=== PATIENT | female | born 1980 | race Caucasian/White ===

== ENCOUNTER 2022-06-12 16:14 | Inpatient (IN) ==
--- NOTE | 2022-06-12 16:57 | XRay Report ---
SINGLE VIEW CHEST CLINICAL HISTORY: Cough and dyspnea. Covid FINDINGS: An AP, portable, upright chest radiograph is compared to study dated 06/07/2022. The cardiom ediastinal silhouette is unremarkable. There is a small right pleural effusion with right basilar con solidation. This is new from 06/07/2022. The left lung appears clear. No pneumothorax is seen. The bon y thorax is grossly intact. IMPRESSION: Small right pleural effusion with right basilar consolidation. This is new from previous. ACT 112: Negative or not required by law. Electronically signed by: Hunter Dc M.D. 06/12/2022 4:55 PM
[2022-06-12] MEDS ORDERED: SODIUM CHLORIDE 0.9% 1000ML 500 ML IV ONE (17:35)
[2022-06-12 17:42] LABS: INR 1.3 (0.9-1.1); Partial Thromboplastin Ratio 1.1; Partial Thromboplastin Time 30.8 Seconds (21.0-31.0); Prothrombin Time 13.3 Seconds (9.0-12.0)
--- NOTE | 2022-06-12 17:42 | Emergency Department Note ---
Impression & Plan Pneumonia, Thrombocytopenia, Acute GI bleeding, Anemia ED Provider Note NAME: RODDY CALL AGE: 42 SEX: F : 1980 ARRIVES VIA: Walk-In INFORMANT: Patient, ED PROVIDER(S): Mikey Mathew DO CHIEF COMPLAINT: Difficulty breathing HPI: Patient is a 42-year-old female who presented to the emergency department for an evaluation of difficulty breathing and cough. The patient was recently discharged from [facility]. She has a history of liver transplant 40 years ago. She has been also in rejection. She was noted to have very high liver function studies and a positive COVID when she was in our facility last week. She was transferred from our facility to [facility]. She states that she was discharged only recently. Her sister presented with her and does give a good portion of the history. She denies having any lower extremity swelling but she is noticed pain and ecchymosis over parts of her body with only minimal trauma. She was supposed to have repeat laboratory studies done today and her doctor noted that her creatinine and BUN were elevated so she was sent to the emergency department for further evaluation. The patient denies having any abdominal pain. She denies having any black or bloody bowels. ROS: See above HPI for pertinent positives & negatives. A total of 10 systems reviewed and were otherwise negative. PAST MEDICAL HISTORY: See Below PAST SURGICAL HISTORY: See Below FAMILY HISTORY: See Below SOCIAL HISTORY: See Below HOME MEDICATIONS: See Below ALLERGIES: See Below VITALS: See Below PHYSICAL EXAMINATION: GENERAL: The patient is awake and alert. She is somewhat anxious appearing. EYES: The conjunctivae are clear. The pupils are round and reactive. EARS, NOSE, MOUTH AND THROAT: The nose is without any evidence of any deformity. NECK: The neck is nontender and supple. Diminished breath sounds are noted at the right base. There is no significant wheezing. There was coughing with deep inspiration but there is no significant conversational dyspnea. CARDIOVASCULAR: Regular rate and rhythm noted there no murmurs rubs or gallops normal S1 normal S2. GASTROINTESTINAL: The abdomen is soft. Abdomen is nontender. Stool exam revealed light brown stool which was heme positive. MUSCULOSKELETAL/EXTREMITIES: There is no evidence of gross deformity full range of motion is noted in the hips and shoulders. SKIN: There is no significant pedal edema. Ecchymosis was noted over the extremities. NEUROLOGIC: Patient is awake alert and oriented x3. MEDICAL DECISION MAKING: The patient is a 42-year-old female who presented to the emergency department for an evaluation of cough. The patient's had ongoing cough for at least last 24 hours. She was sent for outpatient lab studies by her primary care physician. She was found to have anemia. She was also sent in because she has an elevated BUN and creatinine ratio and there was concern that she may have a GI bleed given the patient's history of liver issues and her history of esophageal varices. I discussed the patient's laboratory and radiographic studies with her. She was started on IV antibiotic in the emergency department. She does have significant past medical history and if this is a pulmonary infection I do feel she could have the possibility of a prolonged course and may require further inpatient management or work-up. For this reason I discussed her case with the on-call [facility]. They have agreed to evaluate the patient in the emergency department for further management and disposition. The patient was found to have an improvement of her previously noted transaminitis. Her hemoglobin is stable compared to her blood draw earlier today but it is lower than her last hemoglobin that is in our system. Her rectal exam did reveal heme positive stool but it was light brown and did not appear to be consistent with acute blood or melena. Triage Nursing notes reviewed. Prior medical records reviewed Vital Signs: reviewed and remarkable for no significant abnormalities Differential diagnosis: Reactive airway disease, pneumonia, pneumothorax, COPD, CHF, infections, cardiac ischemia, pulmonary embolism, musculoskeletal, gastrointestinal, as well as other pathologies. ER treatment provided: See below Diagnostics interpreted by me: ECG: EKG was obtained in the emergency department. My interpretation is normal sinus rhythm at 84 bpm. There is no ectopy. There is no acute ST segment abnormalities noted. This was compared to a tracing from December 08, 2021. No changes were noted. Cardiac Monitoring: An order was placed for continuous cardiac monitoring. The monitor shows a rate of 84 bpm with sinus rhythm. Laboratory studies: As stated above and show below. Imaging studies: See below Consultation(s): I discussed this case with Dr. Ramirez who is on-call for the [facility] group. 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"-F/U [facility]-per pre-op letter "cirrhosis with portal hypertension that is likely a result of chronic rejection versus antibody-mediated rejection" Ovarian cyst Portal hypertension Splenomegaly Thrombocythemia Surgical History H/O liver transplant Age 7.5 months, hepatitis H/O myringotomy History of anesthesia reaction has woken up in the middle of anesthesia during wisdom teeth extraction in dentist office History of esophagogastroduodenoscopy (EGD) History of liver biopsy S/P tonsillectomy and adenoidectomy [place] teeth removed Family History Grandmother Ovarian cancer Myocardial infarction Aunt Ovarian cancer Grandfather Lung cancer Father Stroke Hypertension Mother Hypertension Denies family history of Rheumatoid arthritis Prostate cancer Diabetes Osteoporosis Alzheimer disease Crohn's disease Breast cancer Colorectal cancer Asthma Social History Smoking Status: Never smoker Second Hand Exposure: No; Hx Alcohol Use: No Hx Substance Use: No Preferred Language: Chinese Communication Ability: Effective Visual Impairment: No Limitations Hearing Ability: Normal Special Tax Auditor Required: No Beliefs That Will Affect Care: None marital status: Single Current Living Situation: Family Current Living Situation Comment: LIVES WITH SISTER [place] current occupational status: employed current occupation: WORKS [employer] Feels Safe at Home: Yes Childhood Exposure to Second-Hand Smoke: Yes caffeine: No Dental Care, Regularly: Yes Physical Activity Frequency: Does not Exercise Seatbelt Use: never Sunscreen Use: No Assistive Devices: None Allergies Allergies Allergy/AdvReac Type Severity Reaction Status Date / Time dextromethorphan AdvReac Dizziness Verified 01/31/22 10:36 [From Mucinex Cough] guaifenesin AdvReac Dizziness Verified 01/31/22 10:36 [From Mucinex Cough] sumatriptan [From Imitrex] AdvReac Dizziness Unverified 06/12/22 23:37 & Lethargy Home Meds Home Medications Medication Instructions Recorded Confirmed ondansetron HCl 4 mg tablet 4 mg PO Q8H PRN Nausea And Vomiting 12/18/19 06/07/22 prednisone 10 mg tablet 10 mg PO HS 01/20/21 06/07/22 carvedilol 6.25 mg tablet 6.25 mg PO BID 12/01/21 06/07/22 diclofenac sodium 1 % topical gel 2 g topical Q4H PRN Pain 12/01/21 06/07/22 metoclopramide HCl 5 mg tablet 5 mg PO BID 12/01/21 06/07/22 tacrolimus 1 mg PO Q12 06/07/22 06/07/22 Results & Data (ED) Vital Signs Vital Signs - 24 hr 06/12/22 16:16 06/12/22 18:00 06/12/22 20:00 Temperature 36.8 C Temperature Source Temporal Artery Scan Pulse Rate 93 H Pulse Rate [Right Finger] 86 85 Pulse Rhythm [Right Finger] Regular Regular Pulse Strength [Right Finger] Normal Normal Respiratory Rate 18 18 18 Respiratory Effort / Characteristics Non-Labored Non-Labored Respiratory Depth Normal Normal Respiratory Pattern Regular Regular Blood Pressure 123/85 Blood Pressure [Left Arm] 115/78 115/78 Blood Pressure Mean 97 Blood Pressure Mean [Left Arm] 90 90 Blood Pressure Position [Left Arm] Lying Pulse Oximetry 98 97 97 Oxygen Delivery Method Room Air Room Air Room Air Sepsis Recent Fever Within 48 Hours No Sepsis New/Unexplained Change in Mental Status No Sepsis Action Taken by Nursing No Action Required 06/12/22 22:00 Temperature Temperature Source Pulse Rate Pulse Rate [Right Finger] 84 Pulse Rhythm [Right Finger] Regular Pulse Strength [Right Finger] Normal Respiratory Rate 18 Respiratory Effort / Characteristics Non-Labored Respiratory Depth Normal Respiratory Pattern Regular Blood Pressure Blood Pressure [Left Arm] 120/76 Blood Pressure Mean Blood Pressure Mean [Left Arm] 90 Blood Pressure Position [Left Arm] Lying Pulse Oximetry 98 Oxygen Delivery Method Room Air Sepsis Recent Fever Within 48 Hours Sepsis New/Unexplained Change in Mental Status Sepsis Action Taken by Senior Living Medications Current Medication List: was personally reviewed by me Laboratory Data Attestation: I reviewed the patient's lab results. Result diagrams: 06/12/22 17:17 06/12/22 17:17 Lab Results 06/12/22 06/12/22 06/12/22 Range/Units 17:17 17:17 17:18 WBC 3.15 L (4.8-10.8) K/ul RBC 3.18 L (3.93-5.22) M/uL Hgb 8.2 L (12.0-16.0) g/dl Hct 26.5 L (34.1-44.9) % MCV 83.3 (80.0-100.0) fL MCH 25.8 (25.0-34.0) pg MCHC 30.9 L (32.0-36.0) g/dL RDW Std Deviation 50.6 H (36.4-46.3) fL RDW Coeff of Tabatha 16.9 H (11.5-14.5) % Plt Count 54 L (130-400) K/uL Immature Gran % (Auto) 1.0 % Neut % (Auto) 62.2 % Lymph % (Auto) 15.9 % [place] % (Auto) 18.1 % Eos % (Auto) 2.5 % Baso % (Auto) 0.3 % Neut # (Auto) 1.96 (1.4-6.5) K/uL Lymph # (Auto) 0.50 L (1.2-3.4) K/uL [place] # (Auto) 0.57 (0.24-0.82) K/uL Eos # (Auto) 0.08 (0-0.50) K/uL Baso # (Auto) 0.01 (0-0.2) K/uL Immature Gran # (Auto) 0.03 H (0.00-0.02) K/uL Platelet Estimate Decreased L (Normal) Ovalocytes 1+ ESR (0-20) mm/hr PT 13.3 H (9.0-12.0) Seconds INR 1.3 H (0.9-1.1) APTT 30.8 (21.0-31.0) Seconds PTT Ratio 1.1 Sodium 138 (136-145) mmol/L Potassium 3.8 (3.5-5.1) mmol/L Chloride 108 H (98-107) mmol/L Carbon Dioxide 24 (21-32) mmol/L Anion Gap 6 (3-11) BUN 20 (6-23) mg/dl Creatinine 0.61 (0.6-1.2) mg/dl Est Cr Clr Drug Dosing 113.6 ml/min Est GFR ( Amer) 130.5 ml/min Est GFR (Non-Af Amer) 112.6 ml/min BUN/Creatinine Ratio 32.8 H (10-20) Glucose 109 H (70-99(Fasting)) mg/dl Lactate (0.4-2.0) mmol/L Calcium 8.6 (8.5-10.1) mg/dl Total Bilirubin 1.7 H (0.2-1.0) mg/dl AST 80 H (13-39) U/L ALT 62 H (7-52) U/L Alkaline Phosphatase 209 H (34-104) U/L C-Reactive Protein (0-0.5) mg/dl Total Protein 7.2 (6.0-8.3) gm/dl Albumin 3.9 (3.4-5.0) gm/dl Globulin 3.3 (2.5-4.0) gm/dl Albumin/Globulin Ratio 1.2 (0.9-2) Procalcitonin (0-0.5) ng/ml Urine Color Urine Appearance (Clear) Urine pH (4.5-7.5) Ur Specific [place] (1.000-1.030) Urine Protein (Negative) Urine Glucose (UA) (Negative) Urine Ketones (Negative) Urine Blood (Negative) Urine Nitrite (Negative) Urine Bilirubin (Negative) Urine Urobilinogen (Negative) Ur Leukocyte Esterase (Negative) Urine WBC (Auto) (0-5) /hpf Urine RBC (Auto) (0-4) /hpf U Hyaline Cast (Auto) (0-5) /lpf U Epithel Cells (Auto) (0-5) /lpf Urine Bacteria (Auto) (Negative) Urine Yeast 06/12/22 06/12/22 06/12/22 Range/Units 17:19 18:19 18:19 WBC (4.8-10.8) K/ul RBC (3.93-5.22) M/uL Hgb (12.0-16.0) g/dl Hct (34.1-44.9) % MCV (80.0-100.0) fL MCH (25.0-34.0) pg MCHC (32.0-36.0) g/dL RDW Std Deviation (36.4-46.3) fL RDW Coeff of Tabatha (11.5-14.5) % Plt Count (130-400) K/uL Immature Gran % (Auto) % Neut % (Auto) % Lymph % (Auto) % [place] % (Auto) % Eos % (Auto) % Baso % (Auto) % Neut # (Auto) (1.4-6.5) K/uL Lymph # (Auto) (1.2-3.4) K/uL [place] # (Auto) (0.24-0.82) K/uL Eos # (Auto) (0-0.50) K/uL Baso # (Auto) (0-0.2) K/uL Immature Gran # (Auto) (0.00-0.02) K/uL Platelet Estimate (Normal) Ovalocytes ESR 3 (0-20) mm/hr PT (9.0-12.0) Seconds INR (0.9-1.1) APTT (21.0-31.0) Seconds PTT Ratio Sodium (136-145) mmol/L Potassium (3.5-5.1) mmol/L Chloride (98-107) mmol/L Carbon Dioxide (21-32) mmol/L Anion Gap (3-11) BUN (6-23) mg/dl Creatinine (0.6-1.2) mg/dl Est Cr Clr Drug Dosing ml/min Est GFR ( Amer) ml/min Est GFR (Non-Af Amer) ml/min BUN/Creatinine Ratio (10-20) Glucose (70-99(Fasting)) mg/dl Lactate 1.0 (0.4-2.0) mmol/L Calcium (8.5-10.1) mg/dl Total Bilirubin (0.2-1.0) mg/dl AST (13-39) U/L ALT (7-52) U/L Alkaline Phosphatase (34-104) U/L C-Reactive Protein (0-0.5) mg/dl Total Protein (6.0-8.3) gm/dl Albumin (3.4-5.0) gm/dl Globulin (2.5-4.0) gm/dl Albumin/Globulin Ratio (0.9-2) Procalcitonin 0.16 (0-0.5) ng/ml Urine Color Urine Appearance (Clear) Urine pH (4.5-7.5) Ur Specific [place] (1.000-1.030) Urine Protein (Negative) Urine Glucose (UA) (Negative) Urine Ketones (Negative) Urine Blood (Negative) Urine Nitrite (Negative) Urine Bilirubin (Negative) Urine Urobilinogen (Negative) Ur Leukocyte Esterase (Negative) Urine WBC (Auto) (0-5) /hpf Urine RBC (Auto) (0-4) /hpf U Hyaline Cast (Auto) (0-5) /lpf U Epithel Cells (Auto) (0-5) /lpf Urine Bacteria (Auto) (Negative) Urine Yeast 06/12/22 06/12/22 Range/Units 18:19 Unknown WBC (4.8-10.8) K/ul RBC (3.93-5.22) M/uL Hgb (12.0-16.0) g/dl Hct (34.1-44.9) % MCV (80.0-100.0) fL MCH (25.0-34.0) pg MCHC (32.0-36.0) g/dL RDW Std Deviation (36.4-46.3) fL RDW Coeff of Tabatha (11.5-14.5) % Plt Count (130-400) K/uL Immature Gran % (Auto) % Neut % (Auto) % Lymph % (Auto) % [place] % (Auto) % Eos % (Auto) % Baso % (Auto) % Neut # (Auto) (1.4-6.5) K/uL Lymph # (Auto) (1.2-3.4) K/uL [place] # (Auto) (0.24-0.82) K/uL Eos # (Auto) (0-0.50) K/uL Baso # (Auto) (0-0.2) K/uL Immature Gran # (Auto) (0.00-0.02) K/uL Platelet Estimate (Normal) Ovalocytes ESR (0-20) mm/hr PT (9.0-12.0) Seconds INR (0.9-1.1) APTT (21.0-31.0) Seconds PTT Ratio Sodium (136-145) mmol/L Potassium (3.5-5.1) mmol/L Chloride (98-107) mmol/L Carbon Dioxide (21-32) mmol/L Anion Gap (3-11) BUN (6-23) mg/dl Creatinine (0.6-1.2) mg/dl Est Cr Clr Drug Dosing ml/min Est GFR ( Amer) ml/min Est GFR (Non-Af Amer) ml/min BUN/Creatinine Ratio (10-20) Glucose (70-99(Fasting)) mg/dl Lactate (0.4-2.0) mmol/L Calcium (8.5-10.1) mg/dl Total Bilirubin (0.2-1.0) mg/dl AST (13-39) U/L ALT (7-52) U/L Alkaline Phosphatase (34-104) U/L C-Reactive Protein 0.57 H (0-0.5) mg/dl Total Protein (6.0-8.3) gm/dl Albumin (3.4-5.0) gm/dl Globulin (2.5-4.0) gm/dl Albumin/Globulin Ratio (0.9-2) Procalcitonin (0-0.5) ng/ml Urine Color Dark Yellow Urine Appearance Clear (Clear) Urine pH 5.5 (4.5-7.5) Ur Specific [place] 1.027 (1.000-1.030) Urine Protein 1+ H (Negative) Urine Glucose (UA) Negative (Negative) Urine Ketones Trace H (Negative) Urine Blood 3+ H (Negative) Urine Nitrite Positive A (Negative) Urine Bilirubin 1+ H (Negative) Urine Urobilinogen Positive H (Negative) Ur Leukocyte Esterase Trace H (Negative) Urine WBC (Auto) 1-5 (0-5) /hpf Urine RBC (Auto) 0-4 (0-4) /hpf U Hyaline Cast (Auto) 5-10 H (0-5) /lpf U Epithel Cells (Auto) >30 H (0-5) /lpf Urine Bacteria (Auto) Negative (Negative) Urine Yeast Not Reportable Administered Medications Discontinued Medications Sodium Chloride (Nss 1000ml) 500 mls @ 999 mls/hr IV .Q31M ONE Stop: 06/12/22 18:05 Last Infusion: 06/12/22 20:31 Dose: 0 mls/hr Documented By: Admin: 06/12/22 19:55 Dose: 999 mls/hr Documented By: REJI Ceftriaxone Sodium (Rocephin) 2,000 mg in 70 mls @ 140 mls/hr IV NOW STA Stop: 06/12/22 19:32 Last Infusion: 06/12/22 20:31 Dose: 0 mls/hr Documented By: Admin: 06/12/22 19:55 Dose: 140 mls/hr Documented By: AP Imaging Data Radiologist's Impression: Chest X-Ray 06/12/22 16:25 SINGLE VIEW CHEST CLINICAL HISTORY: Cough and dyspnea. Covid FINDINGS: An AP, portable, upright chest radiograph is compared to study dated 06/07/2022. The cardiomediastinal silhouette is unremarkable. There is a small right pleural effusion with right basilar consolidation. This is new from 06/07/2022. The left lung appears clear. No pneumothorax is seen. The bony thorax is grossly intact. IMPRESSION: Small right pleural effusion with right basilar consolidation. This is new from previous. ACT 112: Negative or not required by law. Electronically signed by: Hunter Dc M.D. 06/12/2022 4:55 PM Discharge Plan Visit Data Chief Complaint: Flu Like Symptoms Stated Complaint: + COVID TEST ED Provider: Mikey Mathew Discharge Problem: Pneumonia, Thrombocytopenia, Acute GI bleeding, Anemia Patient Disposition: Being Evaluated by Hospitalist Forms Stand Alone Forms: My [facility] Prescriptions Prescriptions: No Action ondansetron HCl 4 mg tablet 4 mg PO Q8H PRN (Reason: Nausea And Vomiting) prednisone 10 mg tablet 10 mg PO HS tacrolimus 1 mg PO Q12 Rx Instructions: liquid pt states she cannot do pills carvedilol 6.25 mg Tablet 6.25 mg PO BID metoclopramide HCl 5 mg Tablet 5 mg PO BID diclofenac sodium [Voltaren] 1 % Gel 2 g TOPICAL Q4H PRN (Reason: Pain) Referrals Referrals: Donny Mazariegos MD [Primary Care Provider] -
[2022-06-12 17:49] LABS: Albumin Globulin Ratio 1.2 (0.9-2); Albumin Level 3.9 gm/dl (3.4-5.0); BUN Creatinine Ratio 32.8 (10-20); Bilirubin,Total 1.7 mg/dl (0.2-1.0); Calcium 8.6 mg/dl (8.5-10.1); Creatinine Clr Calc Pharmacy 113.6 ml/min; Est GFR (African American) 130.5 ml/min; Est GFR (Non-African American) 112.6 ml/min; Globulin 3.3 gm/dl (2.5-4.0); Potassium 3.8 mmol/L (3.5-5.1); Total Protein 7.2 gm/dl (6.0-8.3)
[2022-06-12 17:56] LABS: Basophils # (auto) 0.01 K/uL (0-0.2); Basophils % (auto) 0.3 %; Eosinophils # (auto) 0.08 K/uL (0-0.50); Eosinophils % (auto) 2.5 %; Hematocrit (blood only) 26.5 % (34.1-44.9); Hemoglobin 8.2 g/dl (12.0-16.0); Immature Granulocytes # (auto) 0.03 K/uL (0.00-0.02); Lymphocytes % (auto) 15.9 %; Mean Corpuscular Hemoglobin 25.8 pg (25.0-34.0); Mean Corpuscular Hgb Conc 30.9 g/dL (32.0-36.0); Mean Corpuscular Volume 83.3 fL (80.0-100.0); Monocytes # (auto) 0.57 K/uL (0.24-0.82); Monocytes % (auto) 18.1 %; Neutrophils # (auto) 1.96 K/uL (1.4-6.5); Neutrophils % (auto) 62.2 %; Ovalocytes 1+; Platelet Count 54 K/uL (130-400); Platelet Estimate Decreased (Normal); RDW Coefficient of Variation 16.9 % (11.5-14.5); RDW Standard Deviation 50.6 fL (36.4-46.3); Red Blood Count 3.18 M/uL (3.93-5.22); White Blood Count 3.15 K/ul (4.8-10.8)
[2022-06-12] MEDS ORDERED: cefTRIAXone SODIUM 2,000 MG/70 ML BAG IV STA (19:03)
[2022-06-12 19:49] LABS: Appearance Urine Clear (Clear); Bacteria Urine Automated Negative (Negative); Blood Urine 3+ (Negative); Color Urine Dark Yellow; Epithelial Cell Urine Auto >30 /lpf (0-5); Glucose Urine UA Negative (Negative); Ketones Urine Trace (Negative); Leukocyte Esterase Urine Trace (Negative); Nitrite Urine Positive (Negative); Protein Urine 1+ (Negative); RBC Urine Automated 0-4 /hpf (0-4); Specific Gravity Urine 1.027 (1.000-1.030); Urobilinogen Urine Positive (Negative); pH Urine 5.5 (4.5-7.5)
[2022-06-12 19:50] LABS: Bilirubin Urine 1+ (Negative)
--- NOTE | 2022-06-12 23:13 | History & Physical Report ---
Date of Service June 12, 2022 Assessment & Plan (1) Upper GI bleed: Plan: Progressive epigastric burning pain x1 day, h/o grade III esophageal varices and cirrhosis, and with severe thrombocytopenia (see below). No N/V/hematemesis/melena/hematochezia but heme occult positive stool in ED. - no hypotension/tachycardia or cailin bloody/melanotic stools in ED. - start Protonix bolus + gtt - received CTX in ED - continue with Cefepime as stated below - hold on Octreotide for now as no overt signs of active bleeding and patient is hemodynamically stable - IVFs as stated below - consulted GI - appreciate recs - check H/H now and check CBC in AM - hemoccult all stools - transfuse for Hgb <7 (2) Pneumonia: Plan: H/o COVID-19 positive on 06/07, with worsening cough and SOB over last day. CXR with small right pleural effusion with right basilar consolidation. Lactate/procalcitonin WNL, CRP 0.57, ESR WNL. Not septic. However patient is chronically immunosuppressed, leukopenic, and recently admitted at [facility] - high risk for resistant PNA. - ordered MRSA nares - pending - ordered CT chest for further evaluation - pending - s/p Ceftriaxone 2g IV in ED - continue with Vancomycin/Cefepime/Azithromycin - follow blood cx and adjust abx accordingly - s/p NSS 500cc bolus - continue with Normosol-R @100cc/hr (full maintenance) - IS Q1H while awake - trend CBC in AM (3) UTI (urinary tract infection): Plan: UA with 3+ blood/positive nitrite/trace LE but with >30 epithelial cells, and no urinary symptoms. - Cefepime will cover for this - follow urine cx and adjust abx accordingly (4) Thrombocytopenia: Plan: Plts 54 here, and PT/INR 13.3/1.3, all of which are improved from [facility] hospitalization. Patient has developed a sparse generalized petechial rash which is likely due to chronic thrombocytopenia. No signs of hemodynamic instability/DIC. - trend CBC and PT/INR in AM - trend clinically for changes in rash (5) Anemia: Plan: Hgb 8.1 --> 8.2 here, up from 7.9 at [facility]. However with heme occult positive stool and epigastric pain. - repeat H/H now and trend CBC in AM - transfuse for Hgb <7 as stated above (6) Transaminitis: Plan: AST 80/ALT 62/ALP 209, all significantly improved from [facility]. Transplant rejection process seems to be improving with increased Prednisone dosing. - continue Prednisone 40mg daily x5 more days (total of 10 days), then back down to chronic 10mg daily dose - recs per [facility] Hepatology - continue Tacrolimus, per [facility] Hepatology - tacrolimus level pending - trend LFTs daily (7) Hyperbilirubinemia: Plan: TBili 1.7, slightly increased from [facility] hospitalization. - trend daily (8) Leukopenia: Plan: WBC 3.15, stable from hospitalization at [facility]. Due to chronic immunosuppressive regimen. - trend daily (9) COVID-19: Plan: Diagnosed on 06/07 with positive test here, symptoms since 06/06 - again positive today. Patient has a cough that is most likely due to superimposed pneumonia, as stated above. - maintain airborne precautions (10) H/O liver transplant: Plan: As a 7-month old. With cirrhosis and chronic rejection of transplanted liver as of 2018. - continue Prednisone and Tacrolimus as specified below - f/u with [facility] Hepatology in 3 months as scheduled (11) Liver cirrhosis: Plan: Chronic, due to chronic rejection of transplant. - plan as above (12) Gastroparesis: Plan: Chronic. With minimal nausea currently. 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 Was found to be pancytopenic as well as with mildly elevated INR and significantly elevated LFTs (AST 439, ALT 199, 2:1 ratio) - all labs worsened from 03/2022. Was also COVID-19 positive. Was mildly tachycardic but otherwise afebrile and hemodynamically stable. Patient was thus transferred to [facility] on 06/08, and was admitted there from 06/08 - 06/10 for presumed liver transplant rejection. Tacrolimus level on 06/10 was 2.9. Pancytopenia improved during hospitalization - on discharge Hgb 7.9/WBC 3.12/plts 45. Transaminitis improved as well - on day of discharge AST 136/ALT 84/TBili 1.3, and coags improved as well - PT 17.7/INR 1.5 on discharge. In regards to COVID-19, patient was febrile with cough during the hospitalization but not septic - she was started on Prednisone 40mg PO daily and was instructed to continue this for total 10 days (today is day 4). Of note patient was on chronic immunosuppressive regimen until age 13. Then had liver biopsy in 2019 which showed advanced cirrhosis with concern for chronic rejection or antibody-mediated rejection. Patient was re-started on Prednisone and Tacrolimus at that time. Since discharge from [facility] on 06/10, patient reports progressively worsening cough and shortness of breath that is worst when lying down. She also reports worsening burning epigastric pain although denies increase in chronic nausea, denies vomiting/hematemesis, denies melena/hematochezia. Reports that she has not had a BM for several days. Also patient reports progressive non-blanching petechial rash on arms/legs/chest over last 24 hours. Denies bleeding lesions or cailin bruising. Denies lightheadedness/dizziness. Denies dysuria, hematuria or increased urinary frequency/urgency. Patient has continued to take increased dose of Prednisone 40mg daily as prescribed (today is day 10) as well as Tacrolimus. In the ED the patient was afebrile and stable on room air. Labs significant for WBC 3.15 (stable), plts 54 (improving) and Hgb 8.1 --> 8.2 several hours later (improving from [facility] discharge). PT 13.3/INR 1.3 (improving). TBili 1.7 (slightly elevated from discharge). AST 80/ALT 62/ALP 209 (all significantly improved). Kidney function intact although BUN:Cr ratio elevated. CRP 0.57/ESR 3/Procalcitonin 0.16. CXR showing small right pleural effusion with right basilar consolidation - new in comparison to 06/07. UA with 3+ blood/positive nitrite/trace LE but with >30 epithelial cells. Patient was given NSS 500cc bolus and CTX 2g IV in ED. Blood/urine cxs collected before initiation of abx. Allergies Allergy/AdvReac Type Severity Reaction Status Date / Time dextromethorphan AdvReac Dizziness Verified 06/12/22 23:41 [From Mucinex Cough] guaifenesin AdvReac Dizziness Verified 06/12/22 23:41 [From Mucinex Cough] sumatriptan [From Imitrex] AdvReac Dizziness Unverified 06/12/22 23:37 & Lethargy Home Medications Medication Instructions Recorded Confirmed Type ondansetron HCl 4 mg tablet 4 mg PO Q8H PRN Nausea And Vomiting 12/18/19 06/12/22 History prednisone 10 mg tablet 10 mg PO HS 01/20/21 06/12/22 History carvedilol 6.25 mg tablet 6.25 mg PO BID 12/01/21 06/12/22 History diclofenac sodium 1 % topical gel 2 g topical Q4H PRN Pain 12/01/21 06/12/22 History metoclopramide HCl 5 mg tablet 5 mg PO BID 12/01/21 06/12/22 History tacrolimus 5 mg capsule, 5 mg PO DIRECTED 06/12/22 06/12/22 History immediate-release 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"-F/U DR SHI JAMES [facility]-per pre-op letter "cirrhosis with portal hypertension that is likely a result of chronic rejection versus antibody-mediated rejection" Ovarian cyst Portal hypertension Splenomegaly Thrombocythemia Surgical History H/O liver transplant Age 7.5 months, hepatitis H/O myringotomy History of anesthesia reaction has woken up in the middle of anesthesia during wisdom teeth extraction in dentist office History of esophagogastroduodenoscopy (EGD) History of liver biopsy S/P tonsillectomy and adenoidectomy [place] teeth removed Family History Grandmother Ovarian cancer Myocardial infarction Aunt Ovarian cancer Grandfather Lung cancer Father Stroke Hypertension Mother Hypertension Denies family history of Rheumatoid arthritis Prostate cancer Diabetes Osteoporosis Alzheimer disease Crohn's disease Breast cancer Colorectal cancer Asthma Social History Smoking Status: Never smoker Second Hand Exposure: No; Hx Alcohol Use: No Hx Substance Use: No Preferred Language: Chinese Communication Ability: Effective Visual Impairment: No Limitations Hearing Ability: Normal Supervising Fire Marshal Required: No Beliefs That Will Affect Care: None marital status: Single Current Living Situation: Family Current Living Situation Comment: LIVES WITH SISTER PB current occupational status: employed current occupation: WORKS [employer] Feels Safe at Home: Yes Safety Concerns: Feels Safe At This Time Childhood Exposure to Second-Hand Smoke: Yes caffeine: No Dental Care, Regularly: Yes Physical Activity Frequency: Does not Exercise Seatbelt Use: never Sunscreen Use: No Assistive Devices: None Review of Systems Review of Systems: All systems reviewed & are unremarkable except as noted in HPI & below Physical Exam Physical Exam: General: A&Ox3. NAD. Cooperative. HEENT: Atraumatic, normocephalic. Pulm: Right basilar crackles, without wheezing. Symmetrical chest rise. No increase work of breathing. No respiratory distress. Cardiac: RRR, -mrg. Radial pulses intact and symmetrical. No LE edema. Abdominal: soft, non-distended, upper abdominal tenderness that is worst in epigastrium without guarding/rebound, NA BS x 4 Skin: patchy petechial/non-blanching rash present on bilateral dorsal feet, legs, arms, and chest/shoulders. No surrounding redness/warmth of any lesion. Results & Data Results & Data ([facility]) Vital Signs (Past 12 Hours) Vital Signs Temp Pulse Pulse Resp BP BP Pulse Ox 06/12/22 22:00 84 18 120/76 98 06/12/22 20:00 85 18 115/78 97 06/12/22 18:00 86 18 115/78 97 06/12/22 16:16 36.8 C 93 H 18 123/85 98 O2 Del Method 06/12/22 22:00 Room Air 06/12/22 20:00 Room Air 06/12/22 18:00 Room Air 06/12/22 16:16 Room Air Code Status & VTE Plan Code Status full code, however patient (and sister - POA) DECLINE intubation in any other setting besides for cardiac arrest Supervising Physician Co-Signing Physician Notes Attending addendum: I have physically seen this patient, have supervised the medical residents activities, and agree with the H&P unless as otherwise noted. Assessment and Plan: Upper GI bleed/cirrhosis/grade 3 esophageal varices/severe thrombocytopenia- NPO Protonix bolus and drip H&H every 6 hours Need to heme test stools Type and screen IV fluids Cefepime IV as noted Pneumonia- Chest x-ray with right lower lobe pleural effusion, with question of associated pneumonia Order CT chest to further characterize Vancomycin IV, cefepime IV and azithromycin IV as noted Duonebs every 4 hours while awake and every 2 hours when necessary. Urinary tract infection- Follow urine culture and sensitivity Antibiotics as above Remaining orders and notations as noted Resident Activity Tracking Resident Involvement: Resident Care Provided Care Provided: Adult Hospital Medicine (1) Anemia Anemia type: unspecified type Qualified Code(s): D64.9 - Anemia, unspecified (2) Pneumonia Laterality: right Lung location: lower lobe of lung Pneumonia type: due to unspecified organism Qualified Code(s): J18.9 - Pneumonia, unspecified organism
[2022-06-13 02:02] LABS: Hematocrit (blood only) 25.3 % (34.1-44.9); Hemoglobin 7.9 g/dl (12.0-16.0)
[2022-06-13 02:16] LABS: Magnesium 1.7 mg/dl (1.7-2.4)
[2022-06-13] MEDS ORDERED: VANCOMYCIN CONSULT ACTIVE PRN (02:49)
[2022-06-13] MEDS ORDERED: PANTOPRAZOLE BOLUS/DRIP 1 EACH IV STA (02:49)
[2022-06-13] MEDS ORDERED: HYDROmorphone INJ 0.5 MG/0.5 ML SYR IV PRN (02:49)
[2022-06-13] MEDS ORDERED: VANCOMYCIN HCL 1,250 MG in SODIUM CHLORIDE 0.9% 500 ML IV ONE (02:49)
[2022-06-13] MEDS ORDERED: PANTOprazole 80 MG in DEXTROSE 5% 100 ML IV ONE (03:15)
[2022-06-13] MEDS: CEFEPIME 2,000 MG in SYRINGE 0 ML IV SCH ×3 (03:32→18:07)
[2022-06-13] MEDS: PANTOprazole 40 MG in DEXTROSE 5% 100 ML IV SCH ×5 (04:00→23:09)
[2022-06-13] MEDS: AZITHROMYCIN 500 MG in DEXTROSE 5% 250 ML IV SCH (04:39)
[2022-06-13] MEDS: NORMOSOL-R 1,000 ML IV SCH ×2 (05:07→18:42)
--- NOTE | 2022-06-13 07:22 | CT Scan Report ---
CT chest diagnostic wo con CLINICAL HISTORY: Cough, chest pain and shortness of breath particularly when laying down flat COMPARISON STUDY: Portable chest from 06/12/2022 CT DOSE: 191.98 mGy.cm TECHNIQUE: Standard CT of the Chest was performed without IV contrast. A dose lowering technique was utilized adhering to the principles of ALARA. FINDINGS: Airway: The airway is clear. No endobronchial lesion is identified. Lungs and pleural: There is a small to moderate size right pleural effusion with compressive atelecta sis/collapse involving the right lower lobe. No confluent alveolar opacities were bronchograms are se en. The remainder of the lungs are clear of acute alveolar opacities, air bronchograms or pulmonary n odules. Mediastinum: There is no evidence for pathologic adenopathy on these limited noncontrast images. The heart size is within normal limits. The thoracic aorta is within normal limits. There is no evidence for pericardial effusion. Upper abdomen: There is splenomegaly present. Osseous structures: There is no acute osseous pathology. IMPRESSION: 1. Small to moderate size right pleural effusion with compressive atelectasis/collapse involving the right lower lobe. 2. No confluent alveolar opacities or air bronchograms. 3. Splenomegaly. ACT 112: Negative or not required by law. Electronically signed by: Bimal Adame M.D. 06/13/2022 7:19 AM
[2022-06-13 08:28] LABS: Hematocrit (blood only) 25.2 % (34.1-44.9); Hemoglobin 7.8 g/dl (12.0-16.0); INR 1.3 (0.9-1.1); Mean Corpuscular Hemoglobin 25.6 pg (25.0-34.0); Mean Corpuscular Volume 82.6 fL (80.0-100.0); Platelet Count 55 K/uL (130-400); Prothrombin Time 14.1 Seconds (9.0-12.0); RDW Standard Deviation 51.1 fL (36.4-46.3); Red Blood Count 3.05 M/uL (3.93-5.22); White Blood Count 3.25 K/ul (4.8-10.8)
[2022-06-13 08:39] LABS: Albumin Globulin Ratio 1.2 (0.9-2); Albumin Level 3.4 gm/dl (3.4-5.0); Bilirubin,Total 1.2 mg/dl (0.2-1.0); Calcium 7.8 mg/dl (8.5-10.1); Creatinine Clr Calc Pharmacy 115.5 ml/min; Est GFR (African American) 131.2 ml/min; Est GFR (Non-African American) 113.2 ml/min; Globulin 2.9 gm/dl (2.5-4.0); Potassium 3.8 mmol/L (3.5-5.1); Total Protein 6.3 gm/dl (6.0-8.3)
[2022-06-13 08:43] LABS: Basophils # (auto) 0.01 K/uL (0-0.2); Basophils % (auto) 0.3 %; Eosinophils # (auto) 0.13 K/uL (0-0.50); Giant Platelets 1+; Immature Granulocytes # (auto) 0.05 K/uL (0.00-0.02); Immature Granulocytes % (auto) 1.5 %; Lymphocytes # (auto) 0.61 K/uL (1.2-3.4); Lymphocytes % (auto) 18.8 %; Monocytes # (auto) 0.56 K/uL (0.24-0.82); Monocytes % (auto) 17.2 %; Neutrophils # (auto) 1.89 K/uL (1.4-6.5); Neutrophils % (auto) 58.2 %; Ovalocytes 1+
--- NOTE | 2022-06-13 11:07 | Gastrointestinal Consultation ---
Date of Consultation June 13, 2022 Assessment & Plan (1) Anemia: (2) Liver cirrhosis: (3) Esophageal varices: Plan -No overt GI bleeding at present. BUN and Cr are unremarkable. Does not appear to have active variceal bleeding at present. -Continue IV Protonix -Continue antibiotics/COVID19 pneumonia treatment per primary team; If no overt GI bleeding and no worsening anemia, can defer EGD to the outpatient setting with her GI team at [facility]. Will monitor H/H and monitor for overt GI bleeding. -Continue cirrhosis/transplant meds; Will need close follow-up with outpatient GI at [facility] and hepatology team. -Monitor MELD labs Supervising Physician Co-Signing Physician Notes Agree with CLAUDIO Arias as above Abd: Soft, NT, ND, +BS Continue current therapy and supportive care No plans for endoscopic workup as patient has no evidence of GI bleed at present, and has COVID Pneumonia. 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 She was on antirejection medications until age 13 when she discontinued therapy. In 2019, she had a liver biopsy that showed advanced cirrhosis with concern for chronic rejection or antibody-mediated rejection at which time the Tacrolimus & Prednisone were restarted. She is a patient of [facility] and has been following with [facility] Hepatology services. She was recently hospitalized last week at [facility] due to concerns of transplant rejection. She was admitted to the hepatology service for monitoring. Her medications were adjusted. She takes Prednisone and Tacrolimus. She did develop a cough while at [facility] and tested positive for COVID19. She improved from a liver standpoint while and was subsequently discharged. She presented to [facility] at the request of her sister due to reported concerns of an elevated BUN. While in the ED, imaging indicated pneumonia. She was admitted. She notes that her sister was concerned about her BUN levels being high but Upon review of this, it appears that her BUN & Creatinine have been unremarkable. It is her BUN/Cr ratio that is high. Her H/H did decline slightly to 7.8/25.2. She is heme positive, but has no overt GI bleeding. She denies hematemesis, nausea, vomiting, diarrhea, constipation, melena, or hematochezia. She moved her bowels this AM and there was no bright red blood or melena. Of note, she is chronically treated by GI for gastroparesis. She complains of a cough, aches, & shortness of breath at present. No other acute concerns. Patient has significant thrombocytopenia. She notes significant bruising. INR 1.3. T Bili 1.2 AST 75 ALT 55 AO 189. Last EGD in January [address] Adam that indicated grade 3 varices that were stable. She has never had a variceal bleed. She takes Carvedilol 6.25 mg BID. She is currently being treated for a UTI as well. She has been initiated on IV Cefepime, Vancomycin & Azithromycin. She is not on an Octreotide drip but is on a Protonix gtt. MELD presently at 10. Allergies Allergy/AdvReac Type Severity Reaction Status Date / Time dextromethorphan AdvReac Dizziness Verified 06/12/22 23:41 [From Mucinex Cough] guaifenesin AdvReac Dizziness Verified 06/12/22 23:41 [From Mucinex Cough] sumatriptan [From Imitrex] AdvReac Dizziness Unverified 06/12/22 23:37 & Lethargy Home Medications Medication Instructions Recorded Confirmed Type ondansetron HCl 4 mg tablet 4 mg PO Q8H PRN Nausea And Vomiting 12/18/19 06/12/22 History prednisone 10 mg tablet 10 mg PO HS 01/20/21 06/12/22 History carvedilol 6.25 mg tablet 6.25 mg PO BID 12/01/21 06/12/22 History diclofenac sodium 1 % topical gel 2 g topical Q4H PRN Pain 12/01/21 06/12/22 History metoclopramide HCl 5 mg tablet 5 mg PO BID 12/01/21 06/12/22 History tacrolimus 5 mg capsule, 5 mg PO DIRECTED 06/12/22 06/12/22 History immediate-release Patient History Medical History Chronic steroid use Elevated liver enzymes GERD (gastroesophageal reflux disease) controlled, stable per pt History of blood transfusion at age 7.5 months Liver cirrhosis "currently in liver rejection"-F/U DR SHI JAMES [facility]-per pre-op letter "cirrhosis with portal hypertension that is likely a result of chronic rejection versus antibody-mediated rejection" Ovarian cyst Portal hypertension Splenomegaly Thrombocythemia Surgical History H/O liver transplant Age 7.5 months, hepatitis H/O myringotomy History of anesthesia reaction has woken up in the middle of anesthesia during wisdom teeth extraction in dentist office History of esophagogastroduodenoscopy (EGD) History of liver biopsy S/P tonsillectomy and adenoidectomy [place] teeth removed Family History Grandmother Ovarian cancer Myocardial infarction Aunt Ovarian cancer Grandfather Lung cancer Father Stroke Hypertension Mother Hypertension Denies family history of Rheumatoid arthritis Prostate cancer Diabetes Osteoporosis Alzheimer disease Crohn's disease Breast cancer Colorectal cancer Asthma Social History Smoking Status: Never smoker Second Hand Exposure: No; Hx Alcohol Use: No Hx Substance Use: No Preferred Language: Divehi Communication Ability: Effective Visual Impairment: No Limitations Hearing Ability: Normal Infection Control Rn Required: No Beliefs That Will Affect Care: None marital status: Single Current Living Situation: Family Current Living Situation Comment: LIVES WITH SISTER PB current occupational status: employed current occupation: WORKS [employer] Feels Safe at Home: Yes Safety Concerns: Feels Safe At This Time Childhood Exposure to Second-Hand Smoke: Yes caffeine: No Dental Care, Regularly: Yes Physical Activity Frequency: Does not Exercise Seatbelt Use: never Sunscreen Use: No Assistive Devices: None Review of Systems Constitutional: + chills and + malaise; no fever Respiratory: + cough, + change in sputum, + dyspnea and + dyspnea on exertion Cardiovascular: no chest pain Gastrointestinal: no abdominal pain, no coffee ground emesis, no hematemesis, no change in bowel habits, no diarrhea/loose stools, no blood in stools and no melena Integumentary: no yellowing of the skin Endocrine: no cold intolerance Physical Exam Constitutional: well developed Respiratory: + cough; no respiratory distress Cardiovascular: Rate/Rhythm: regular rate and regular rhythm Gastrointestinal (Abdomen): normal bowel sounds, soft, nontender, no hepatosplenomegaly Musculoskeletal: Head/Neck/Chest: normocephalic Psychiatric: Orientation: alert and oriented x 3 Results & Data ([facility]) Vital Signs (Past 12 Hours) Vital Signs Temp Pulse Pulse Resp BP Pulse Ox O2 Del Method 06/13/22 09:44 85 06/13/22 08:56 Room Air 06/13/22 07:57 37.2 C 91 H 18 109/76 98 Room Air 06/13/22 07:41 36.7 C 63 16 123/69 95 Room Air 06/13/22 03:33 85 06/13/22 02:20 36.9 C 88 16 116/80 98 06/13/22 00:00 84 18 118/78 97 Room Air PG Care Time/CCT Total # of Minutes Spent Total Time Spent with Patient: Total time spent is greater than 50% in coordination of care (as documented) at patient's floor/unit and/or counseling patient: Coding Level of Care Code 15284 Inpt Consult Level 4 Diagnoses Anemia D64.9 Anemia type: unspecified type Liver cirrhosis K74.60 Esophageal varices I85.00 (1) Anemia Anemia type: unspecified type Qualified Code(s): D64.9 - Anemia, unspecified
[2022-06-13] MEDS: predniSONE 20 MG TAB PO SCH (12:13)
[2022-06-13] MEDS ORDERED: Nursing to Pharmacy Communication SCH (15:00)
--- NOTE | 2022-06-13 17:05 | Electrocardiogram Report ---
Test Reason : Blood Pressure : / mmHG Vent. Rate : 084 BPM Atrial Rate : 084 BPM P-R Int : 118 ms QRS Dur : 078 ms QT Int : 378 ms P-R-T Axes : 070 049 053 degrees QTc Int : 446 ms Normal sinus rhythm Normal ECG When compared with ECG of 08-DEC-2021 13:51, No significant change was found Confirmed by Mikey Avendano ([id number]) on 06/13/2022 5:05:24 PM Referred By: REFERRED SELF Confirmed By:Mikey Avendano
[2022-06-13] MEDS: TACROLIMUS 1 MG CAP PO SCH (20:17)
[2022-06-14] MEDS: CEFEPIME 2,000 MG in SYRINGE 0 ML IV SCH ×3 (03:11→18:36)
[2022-06-14] MEDS: PANTOprazole 40 MG in DEXTROSE 5% 100 ML IV SCH ×5 (03:12→23:11)
[2022-06-14] MEDS: AZITHROMYCIN 500 MG in DEXTROSE 5% 250 ML IV SCH (03:20)
--- NOTE | 2022-06-14 04:56 | Billing Data ---
Date of Service June 14, 2022 Coding Level of Care Code 94269 Initial Inpt Care Lvl 3
[2022-06-14] MEDS: predniSONE 20 MG TAB PO SCH (08:00)
[2022-06-14] MEDS: TACROLIMUS 1 MG CAP PO SCH ×2 (08:02→19:59)
[2022-06-14] MEDS ORDERED: NORMOSOL-R 500 ML IV ONE (09:34)
[2022-06-14] MEDS ORDERED: METOPROLOL TARTRATE 1 MG/ML VIAL IV STA ×2 (09:38→10:19)
--- NOTE | 2022-06-14 10:49 | Communication Note ---
Date of Service: June 13, 2022 Chart reviewed, vitals are stable. Appreciate input from GI.
[2022-06-14 10:52] LABS: Hematocrit (blood only) 26.5 % (34.1-44.9); Hemoglobin 8.2 g/dl (12.0-16.0); Mean Corpuscular Hemoglobin 25.5 pg (25.0-34.0); Mean Corpuscular Hgb Conc 30.9 g/dL (32.0-36.0); Mean Corpuscular Volume 82.6 fL (80.0-100.0); RDW Coefficient of Variation 16.6 % (11.5-14.5); RDW Standard Deviation 49.9 fL (36.4-46.3); Red Blood Count 3.21 M/uL (3.93-5.22)
[2022-06-14 11:02] LABS: Base Excess VBG 0.8 mEq/L; HCO3 VBG 24 mmol/L; Oxygen Saturation VBG 83.3 %; PCO2 VBG 34 mmHg (38-50); PO2 VBG 50 mmHg; pH VBG 7.46 (7.36-7.41)
[2022-06-14 11:16] LABS: C Reactive Protein < 0.50 mg/dl (0-0.5); Iron 25 mcg/dl (35-150); Unsaturated Iron Binding Cap 261 mcg/dl (155-355)
[2022-06-14 11:20] LABS: Basophils # (auto) 0.01 K/uL (0-0.2); Basophils % (auto) 0.2 %; Eosinophils # (auto) 0.07 K/uL (0-0.50); Eosinophils % (auto) 1.6 %; Immature Granulocytes # (auto) 0.07 K/uL (0.00-0.02); Immature Granulocytes % (auto) 1.6 %; Lymphocytes # (auto) 0.55 K/uL (1.2-3.4); Lymphocytes % (auto) 12.5 %; Monocytes # (auto) 0.36 K/uL (0.24-0.82); Monocytes % (auto) 8.2 %; Neutrophils # (auto) 3.34 K/uL (1.4-6.5); Neutrophils % (auto) 75.9 %
[2022-06-14 11:21] LABS: Mean Platelet Volume 13.1 fL (9.4-12.3); Platelet Count 67 K/uL (130-400)
[2022-06-14 12:02] LABS: Albumin Globulin Ratio 1.1 (0.9-2); Albumin Level 3.5 gm/dl (3.4-5.0); BUN Creatinine Ratio 16.9 (10-20); Bilirubin,Total 1.3 mg/dl (0.2-1.0); Calcium 8.1 mg/dl (8.5-10.1); Creatinine Clr Calc Pharmacy 106.6 ml/min; Est GFR (African American) 127.8 ml/min; Est GFR (Non-African American) 110.3 ml/min; Globulin 3.3 gm/dl (2.5-4.0); Potassium 3.8 mmol/L (3.5-5.1); Total Protein 6.8 gm/dl (6.0-8.3)
[2022-06-14 12:20] LABS: Ferritin 9.3 ng/ml (8-388)
--- NOTE | 2022-06-14 16:10 | Cardiology Consultation ---
Date of Consultation June 14, 2022 Assessment & Plan (1) Tachycardia: -differential diagnosis includes an SVT verses atrial tachycardia verses atrial flutter. -no clear flutter waves on monitor strips, however, no 12 lead EKG obtained. -did respond to intravenous metoprolol tartrate. -CHADSVasc score is 1 (female gender) should we identify atrial flutter. -seems too high risk for anticoagulation realizing her numerous comorbidities and esophageal varices. -the patient understands and agrees. -will review with electrophysiology tomorrow. -continue to monitor. History of Present Illness Attending Physician: Colt Napier History of Present Illness Miss Davalos is a 42-year-old female admitted June 12 with an upper GI bleed likely related to grade III esophageal varices. She developed an episode of a rapid regular tachycardia at approximately 9:20 a.m. this morning, and therefore, this consultation was ordered. The patient's recent history began on June 07 when she came down with a COVID 19 infection. She was seen in our emergency room and then transferred to for further care. She was discharged home in stable fashion on June 10. She again presented to our emergency room on June 12 complaining of progressive epigastric burning pain present for approximately 24 hours. She was found to be heme-positive when tested, therefore, hospitalization was recommended. There was no active bleeding. She was placed in COVID isolation. This morning, at approximately 9:20 a.m., the patient developed palpitations and was found to be in a rapid and regular tachycardia on the monitor. She was given 2 doses of intravenous metoprolol tartrate and her tachycardia broke at approximately 10:25 a.m.. The patient has noted tachycardia previously, however, it has never gone above 105-110 beats per minute. This often occurs after vigorous physical activity. It terminates with rest. She has never experienced chest discomfort or dyspnea with her tachycardia. She further denies syncope, presyncope, PND, orthopnea, lower extremity edema, and claudication. Currently, patient is resting comfortably and without complaints. Past medical and surgical history 1. Anemia of chronic disease 2. Thrombocytopenia 3. Esophageal varices 4. Cirrhosis 5. Chronic liver transplant rejection 6. GERD 7. Liver transplant-age 7 months 8. Tonsillectomy 9. 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 No tobacco alcohol Family history Father is 70. Suffered a CVA 4 years ago. Mother is 60 with hypertension Sister is alive and well Review of systems A 10 review systems was negative except that described above. Allergies Allergy/AdvReac Type Severity Reaction Status Date / Time dextromethorphan AdvReac Dizziness Verified 06/12/22 23:41 [From Mucinex Cough] guaifenesin AdvReac Dizziness Verified 06/12/22 23:41 [From Mucinex Cough] sumatriptan [From Imitrex] AdvReac Dizziness Unverified 06/12/22 23:37 & Lethargy Home Medications Medication Instructions Recorded Confirmed Type ondansetron HCl 4 mg tablet 4 mg PO Q8H PRN Nausea And Vomiting 12/18/19 06/12/22 History prednisone 10 mg tablet 10 mg PO HS 01/20/21 06/12/22 History carvedilol 6.25 mg tablet 6.25 mg PO BID 12/01/21 06/12/22 History diclofenac sodium 1 % topical gel 2 g topical Q4H PRN Pain 12/01/21 06/12/22 History metoclopramide HCl 5 mg tablet 5 mg PO BID 12/01/21 06/12/22 History tacrolimus 5 mg capsule, 5 mg PO DIRECTED 06/12/22 06/12/22 History immediate-release Patient History Medical History Chronic steroid use Elevated liver enzymes GERD (gastroesophageal reflux disease) controlled, stable per pt History of blood transfusion at age 7.5 months Liver cirrhosis "currently in liver rejection"-F/U [facility]-per pre-op letter "cirrhosis with portal hypertension that is likely a result of chronic rejection versus antibody-mediated rejection" Ovarian cyst Portal hypertension Splenomegaly Thrombocythemia Surgical History H/O liver transplant Age 7.5 months, hepatitis H/O myringotomy History of anesthesia reaction has woken up in the middle of anesthesia during wisdom teeth extraction in dentist office History of esophagogastroduodenoscopy (EGD) History of liver biopsy S/P tonsillectomy and adenoidectomy [place] teeth removed Family History Grandmother Ovarian cancer Myocardial infarction Aunt Ovarian cancer Grandfather Lung cancer Father Stroke Hypertension Mother Hypertension Denies family history of Rheumatoid arthritis Prostate cancer Diabetes Osteoporosis Alzheimer disease Crohn's disease Breast cancer Colorectal cancer Asthma Social History Smoking Status: Never smoker Second Hand Exposure: No; Hx Alcohol Use: No Hx Substance Use: No Preferred Language: Swedish Communication Ability: Effective Visual Impairment: No Limitations Hearing Ability: Normal Systems Support Officer Required: No Beliefs That Will Affect Care: None marital status: Single Current Living Situation: Family Current Living Situation Comment: LIVES WITH SISTER [place] current occupational status: employed current occupation: WORKS [employer] Feels Safe at Home: Yes Safety Concerns: Feels Safe At This Time Childhood Exposure to Second-Hand Smoke: Yes caffeine: No Dental Care, Regularly: Yes Physical Activity Frequency: Does not Exercise Seatbelt Use: never Sunscreen Use: No Assistive Devices: None Physical Exam Physical Exam: Exam per Dr. Napier as patient in [address] Results & Data ([facility]) Vital Signs (Past 12 Hours) Vital Signs Temp Pulse Pulse Resp BP BP Pulse Ox 06/14/22 11:50 37.0 C 91 H 20 109/72 97 06/14/22 08:00 06/14/22 10:26 149 H 105/81 06/14/22 09:53 157 H 105/81 06/14/22 07:53 37.3 C 88 18 103/63 98 O2 Del Method 06/14/22 11:50 Room Air 06/14/22 08:00 Room Air 06/14/22 10:26 06/14/22 09:53 06/14/22 07:53 Room Air Laboratory Results CBC notes hemoglobin of 8.2, hematocrit 26.5, white count 4.4, platelet count 84580. Electrolytes note a sodium of 137, potassium 3.8, chloride 109, bicarb 22, BUN 11, creatinine 0.65, and glucose of 136. Magnesium level is normal at 1.7. Diagnostic Findings Review of the monitor strips from this morning noted a regular and narrow complex tachycardia at approximately 160 beats per minute. No clear flutter waves identified. Admission EKG notes sinus rhythm without abnormalities. KS interval is borderline short. CT scan of chest notes a small right pleural effusion and collapse of the right lower lobe. PG Care Time/CCT Total # of Minutes Spent Total Time Spent with Patient: Total time spent is greater than 50% in coordination of care (as documented) at patient's floor/unit and/or counseling patient: Coding Level of Care Code 28755 Inpt Consult Level 4 Diagnoses Tachycardia R00.0
[2022-06-14] MEDS: TACROLIMUS 0.5 MG/ML PO SCH (20:02)
--- NOTE | 2022-06-14 21:43 | Hospitalist Progress Note ---
Date of Service June 14, 2022 Assessment & Plan (1) Upper GI bleed: Plan: Progressive epigastric burning pain x1 day, h/o grade III esophageal varices and cirrhosis, and with severe thrombocytopenia (see below). No N/V/hematemesis/melena/hematochezia but heme occult positive stool in ED. - no hypotension/tachycardia or cailin bloody/melanotic stools in ED. - start Protonix bolus + gtt - received CTX in ED - continue with Cefepime as stated below - hold on Octreotide for now as no overt signs of active bleeding and patient is hemodynamically stable - IVFs as stated below - consulted GI - appreciate recs -no signs of active bleeding. will recheck hemoglobin in am. - hemoccult all stools - transfuse for Hgb <7 (2) Pneumonia: Plan: H/o COVID-19 positive on 06/07, with worsening cough and SOB over last day. CXR with small right pleural effusion with right basilar consolidation. Lactate/procalcitonin WNL, CRP 0.57, ESR WNL. Not septic. However patient is chronically immunosuppressed, leukopenic, and recently admitted at [facility] - high risk for resistant PNA. - ordered MRSA nares -negative - ordered CT chest for further evaluation - pending - s/p Ceftriaxone 2g IV in ED - continue with Cefepime/Azithromycin - follow blood cx and adjust abx accordingly - s/p NSS 500cc bolus - continue with Normosol-R @100cc/hr (full maintenance) - IS Q1H while awake (3) UTI (urinary tract infection): Plan: UA with 3+ blood/positive nitrite/trace LE but with >30 epithelial cells, and no urinary symptoms. - Cefepime will cover for this - follow urine cx and adjust abx accordingly (4) Thrombocytopenia: Plan: Plts 54 here, and PT/INR 13.3/1.3, all of which are improved from [facility] hospitalization. Patient has developed a sparse generalized petechial rash which is likely due to chronic thrombocytopenia. No signs of hemodynamic instability/DIC. - trend CBC and PT/INR in AM - trend clinically for changes in rash (5) Anemia: Plan: Hgb 8.1 --> 8.2 here, up from 7.9 at [facility]. However with heme occult positive stool and epigastric pain. - repeat H/H now and trend CBC in AM - transfuse for Hgb <7 as stated above hemoglonbin is 8.2 if stable in AM. will consider discharge. (6) Transaminitis: Plan: AST 80/ALT 62/ALP 209, all significantly improved from [facility]. Transplant rejection process seems to be improving with increased Prednisone dosing. - continue Prednisone 40mg daily x5 more days (total of 10 days), then back down to chronic 10mg daily dose - recs per [facility] Hepatology - continue Tacrolimus, per [facility]ology - tacrolimus level pending - trend LFTs daily (7) Hyperbilirubinemia: Plan: TBili 1.7, slightly increased from [facility] hospitalization. - trend daily (8) Leukopenia: Plan: WBC 3.15, stable from hospitalization at [facility]. Due to chronic immunosuppressive regimen. - trend daily (9) COVID-19: Plan: Diagnosed on 06/07 with positive test here, symptoms since 06/06 - again positive today. Patient has a cough that is most likely due to superimposed pneumonia, as stated above. - maintain airborne precautions (10) H/O liver transplant: Plan: As a 7-month old. With cirrhosis and chronic rejection of transplanted liver as of 2019. - continue Prednisone and Tacrolimus as specified below - f/u with [facility]atology in 3 months as scheduled (11) Liver cirrhosis: Plan: Chronic, due to chronic rejection of transplant. - plan as above (12) Gastroparesis: Plan: Chronic. With minimal nausea currently. - PRN Zofran ordered (13) Pancytopenia: Plan: Immunosuppressive drug therapy induced pancytopenia 42-year-old female with a known history of immunosuppressive therapy of prednisone and tacrolimus. She presents with obvious pancytopenia and with active COVID-19 pneumonia. As above. WBCs 3.25, RBCs 3.05, hemoglobin 7.8, hematocrit 25.2, platelet count 55, Risk Factor(s): Chronic prednisone and Prograf therapy Treatment: Daily CBCs with differential, antibiotics (14) Tachycardia: Plan: Patient had an episode of supraventircular tachycardia. improved with 2 doses of 5mg of metoprolol IV consulted cardio. CHADSVASC score is 1. If atrial flutter, no indication for anticoagulation at this point in time. Especially given her high risk of bleeding. Plan FEN/GI: NPO pending GI evaluation, Protonix gtt, Normosol-R @100cc/hr DVT Prophylaxis: contraindicated due to upper GI bleed and thrombocytopenia Code Status: full code, although NO intubation outside of cardiac arrest Disposition: PCU Admission and Anticipated Discharge Date Admission Date: June 13, 2022 Subjective 42 yo female reports no new symptoms. Review of Systems Review of Systems: All systems reviewed & are unremarkable except as noted in HPI & below Physical Exam Physical Exam: General: A&Ox3. NAD. Cooperative. HEENT: Atraumatic, normocephalic. Pulm: Right basilar crackles, without wheezing. Symmetrical chest rise. No increase work of breathing. No respiratory distress. Cardiac: RRR, -mrg. Radial pulses intact and symmetrical. No LE edema. Abdominal: soft, non-distended, upper abdominal tenderness that is worst in epigastrium without guarding/rebound, NA BS x 4 Skin: patchy petechial/non-blanching rash present on bilateral dorsal feet, legs, arms, and chest/shoulders. No surrounding redness/warmth of any lesion. Results & Data Results & Data ([facility]) Vital Signs (Past 12 Hours) Vital Signs Temp Pulse Pulse Resp BP BP Pulse Ox 06/14/22 20:19 36.8 C 84 18 119/73 96 06/14/22 15:56 36.8 C 89 20 111/82 95 06/14/22 11:50 37.0 C 91 H 20 109/72 97 06/14/22 10:26 149 H 105/81 06/14/22 09:53 157 H 105/81 O2 Del Method 06/14/22 20:19 Room Air 06/14/22 15:56 Room Air 06/14/22 11:50 Room Air 06/14/22 10:26 06/14/22 09:53 PG Care Time/CCT Total # of Minutes Spent Total Time Spent with Patient: Total time spent is greater than 50% in coordination of care (as documented) at patient's floor/unit and/or counseling patient: Coding Level of Care Code 04166 Subseq Hosp Care Lvl 3 Diagnoses Upper GI bleed K92.2 Pneumonia J18.9 Laterality: right Lung location: lower lobe of lung Pneumonia type: due to unspecified organism UTI (urinary tract infection) N39.0 Thrombocytopenia D69.6 Anemia D64.9 Anemia type: unspecified type Transaminitis R74.01 Hyperbilirubinemia E80.6 Leukopenia D72.819 COVID-19 U07.1 H/O liver transplant Z94.4 Liver cirrhosis K74.60 Gastroparesis K31.84 Pancytopenia D61.818 Tachycardia R00.0 Time Spent (min) 45 (1) Anemia Anemia type: unspecified type Qualified Code(s): D64.9 - Anemia, unspecified (2) Pneumonia Laterality: right Lung location: lower lobe of lung Pneumonia type: due to unspecified organism Qualified Code(s): J18.9 - Pneumonia, unspecified organism
[2022-06-15] MEDS: PANTOprazole 40 MG in DEXTROSE 5% 100 ML IV SCH ×4 (04:08→16:57)
[2022-06-15] MEDS: AZITHROMYCIN 500 MG in DEXTROSE 5% 250 ML IV SCH (04:08)
[2022-06-15] MEDS: CEFEPIME 2,000 MG in SYRINGE 0 ML IV SCH ×3 (04:08→19:57)
[2022-06-15 06:58] LABS: Hematocrit (blood only) 25.2 % (34.1-44.9); Hemoglobin 7.6 g/dl (12.0-16.0); Mean Corpuscular Hemoglobin 25.2 pg (25.0-34.0); Mean Corpuscular Hgb Conc 30.2 g/dL (32.0-36.0); Mean Corpuscular Volume 83.7 fL (80.0-100.0); Mean Platelet Volume 12.3 fL (9.4-12.3); Platelet Count 73 K/uL (130-400); RDW Standard Deviation 52.4 fL (36.4-46.3); Red Blood Count 3.01 M/uL (3.93-5.22)
[2022-06-15 07:24] LABS: Troponin I High Sensitivity 7.4 pg/ml (0-14)
[2022-06-15 07:25] LABS: BUN Creatinine Ratio 16.9 (10-20); Creatinine Clr Calc Pharmacy 106.6 ml/min; Est GFR (African American) 127.8 ml/min; Est GFR (Non-African American) 110.3 ml/min; Potassium 3.9 mmol/L (3.5-5.1)
[2022-06-15] MEDS: TACROLIMUS 1 MG CAP PO SCH (08:10)
[2022-06-15] MEDS: TACROLIMUS 0.5 MG/ML PO SCH ×2 (08:10→20:37)
[2022-06-15] MEDS: predniSONE 20 MG TAB PO SCH (08:11)
--- NOTE | 2022-06-15 09:46 | Hospitalist Progress Note ---
Date of Service June 15, 2022 Assessment & Plan (1) Pneumonia: Plan: H/o COVID-19 positive on 06/07, with worsening cough and SOB over last day. CXR with small right pleural effusion with right basilar consolidation. Lactate/procalcitonin WNL, CRP 0.57, ESR WNL. Not septic. However patient is chronically immunosuppressed, leukopenic, and recently admitted at [facility] - high risk for resistant PNA. - ordered MRSA nares -negative - ordered CT chest for further evaluation - pending - s/p Ceftriaxone 2g IV in ED - continue with Cefepime/Azithromycin - follow blood cx and adjust abx accordingly Downtrending hemoglobin, patient continuing to feel poor although satting on room air follow hemoglobin for stability, continue above (2) Upper GI bleed: Plan: Progressive epigastric burning pain x1 day, h/o grade III esophageal varices and cirrhosis, and with severe thrombocytopenia (see below). No N/V/hematemesis/melena/hematochezia but heme occult positive stool in ED. - no hypotension/tachycardia or cailin bloody/melanotic stools in ED. -Continue Protonix drip 72 hours then convert to twice daily - received CTX in ED - continue with Cefepime as stated below - hold on Octreotide for now as no overt signs of active bleeding and patient is hemodynamically stable - IVFs as stated below - consulted GI - appreciate recs -no signs of active bleeding. Hemoglobin down trended 7.6 today, continue to follow for stability Ferritin borderline low, low serum iron, equivocal U IBC. Transferrin saturation ordered. If TSAT very low, +venofer (3) UTI (urinary tract infection): Plan: UA with 3+ blood/positive nitrite/trace LE but with >30 epithelial cells, and no urinary symptoms. - Cefepime will cover for this -UC with gamma strep (4) Thrombocytopenia: Plan: Plts 54 here, and PT/INR 13.3/1.3, all of which are improved from [facility] hospitalization. Patient has developed a sparse generalized petechial rash which is likely due to chronic thrombocytopenia. No signs of hemodynamic instability/DIC. - trend CBC and PT/INR in AM - trend clinically for changes in rash (5) Anemia: Plan: Hgb 8.1 --> 8.2 here, up from 7.9 at [facility]. However with heme occult positive stool and epigastric pain. - repeat H/H now and trend CBC in AM - transfuse for Hgb <7 as stated above Hemoglobin down trending, discharge held for stability. Iron evaluation as noted (6) Transaminitis: Plan: AST 80/ALT 62/ALP 209, all significantly improved from [facility]. Transplant rejection process seems to be improving with increased Prednisone dosing. - continue Prednisone 40mg daily x5 more days (total of 10 days), then back down to chronic 10mg daily dose - recs per [facility] Hepatology - continue Tacrolimus, per [facility] - tacrolimus level pending - trend LFTs daily (7) Hyperbilirubinemia: Plan: TBili 1.7, slightly increased from [facility] hospitalization. - trend daily (8) Leukopenia: Plan: WBC 3.15, stable from hospitalization at [facility]. Due to chronic immunosuppressive regimen. - trend daily (9) COVID-19: Plan: Diagnosed on 06/07 with positive test here, symptoms since 06/06 - again positive today. Patient has a cough that is most likely due to superimposed pneumonia, as stated above. - maintain airborne precautions (10) H/O liver transplant: Plan: As a 7-month old. With cirrhosis and chronic rejection of transplanted liver as of 2019. - continue Prednisone and Tacrolimus as specified below - f/u with [facility] Hepatology in 3 months as scheduled (11) Liver cirrhosis: Plan: Chronic, due to chronic rejection of transplant. - plan as above (12) Gastroparesis: Plan: Chronic. With minimal nausea currently. - PRN Zofran ordered (13) Pancytopenia: Plan: Immunosuppressive drug therapy induced pancytopenia istory of immunosuppressive therapy of prednisone and tacrolimus. She presents with obvious pancytopenia and with active COVID-19 pneumonia. Risk Factor(s): Chronic prednisone and Prograf therapy Treatment: Daily CBCs with differential, antibiotics (14) Tachycardia: Plan: Patient had an episode of supraventircular tachycardia. improved with 2 doses of 5mg of metoprolol IV CHADSVASC score is 1. Continue metoprolol as needed, high risk for anticoagulation with a [id number] of 1. Do not recommend anticoagulation in this patient Plan DVT Prophylaxis: contraindicated due to upper GI bleed and thrombocytopenia Code Status: full code, although NO intubation outside of cardiac arrest Disposition: PCU Admission and Anticipated Discharge Date Admission Date: June 13, 2022 Subjective Seen at bedside. Increased cough, no fevers or chills. Fatigued. No bleeding. No other new symptoms Review of Systems Review of Systems: All systems reviewed & are unremarkable except as noted in Subjective Physical Exam Physical Exam: General: A&Ox3. NAD. Cooperative. Skin: Scattered petechial rash on extremities, no overlying erythema. HEENT: Atraumatic, normocephalic. Vision and hearing grossly intact Pulm: Diminished with moderate air movement, bibasilar crackles which clear on deep breathing, no wheezes symmetrical chest rise. No increase in work of breathing. No respiratory distress. Cardiac: RRR, -mrg. Radial pulses intact and symmetrical. Abdominal: Nontender, nondistended, soft. BS present. Results & Data Results & Data ([facility]) Vital Signs (Past 12 Hours) Vital Signs Temp Pulse Pulse Resp BP Pulse Ox O2 Del Method 06/15/22 08:43 81 06/15/22 08:40 Room Air 06/15/22 07:30 37.0 C 86 18 100/66 99 Room Air 06/15/22 03:47 36.9 C 85 18 98/54 L 95 06/15/22 00:20 Room Air 06/14/22 23:15 36.5 C 87 18 98/58 L 97 Room Air PG Care Time/CCT Total # of Minutes Spent Total Time Spent with Patient: Total time spent is greater than 50% in coordination of care (as documented) at patient's floor/unit and/or counseling patient: Coding Level of Care Code 38475 Subseq Hosp Care Lvl 3 Diagnoses Pneumonia J18.9 Laterality: right Lung location: lower lobe of lung Pneumonia type: due to unspecified organism Upper GI bleed K92.2 UTI (urinary tract infection) N39.0 Thrombocytopenia D69.6 Anemia D64.9 Anemia type: unspecified type Transaminitis R74.01 Hyperbilirubinemia E80.6 Leukopenia D72.819 COVID-19 U07.1 H/O liver transplant Z94.4 Liver cirrhosis K74.60 Gastroparesis K31.84 Pancytopenia D61.818 Tachycardia R00.0 (1) Pneumonia Laterality: right Lung location: lower lobe of lung Pneumonia type: due to unspecified organism Qualified Code(s): J18.9 - Pneumonia, unspecified organism (2) Anemia Anemia type: unspecified type Qualified Code(s): D64.9 - Anemia, unspecified
--- NOTE | 2022-06-15 09:47 | Cardiology Progress Note ---
Date of Service June 15, 2022 Assessment & Plan (1) Tachycardia: Plan: -differential diagnosis includes an SVT verses atrial tachycardia verses atrial flutter. -no clear flutter waves on monitor strips. -did respond to intravenous metoprolol tartrate. -CHADSVasc score is only 1 (female gender) should we identify atrial flutter. -seems too high risk for anticoagulation realizing her numerous comorbidities and esophageal varices. -the patient understands and agrees. -no further tachycardia on monitor. -would use metoprolol tartrate 25 mg p.r.n. tachycardia. Admission and Anticipated Discharge Date Admission Date: June 13, 2022 Subjective In bed without complaints palpitations. Physical Exam Physical Exam: Exam per Dr. Vernon as patient in [address] Results & Data ([facility]) Vital Signs (Past 12 Hours) Vital Signs Temp Pulse Pulse Resp BP Pulse Ox O2 Del Method 06/15/22 08:43 81 06/15/22 08:40 Room Air 06/15/22 07:30 37.0 C 86 18 100/66 99 Room Air 06/15/22 03:47 36.9 C 85 18 98/54 L 95 06/15/22 00:20 Room Air 06/14/22 23:15 36.5 C 87 18 98/58 L 97 Room Air Diagnostic Findings She monitor sinus rhythm occasional PACs. No further tachycardia PG Care Time/CCT Total # of Minutes Spent Total Time Spent with Patient: Total time spent is greater than 50% in coordination of care (as documented) at patient's floor/unit and/or counseling patient: Coding Level of Care Code 84362 Subseq Hosp Care Lvl 3 Diagnoses Tachycardia R00.0
[2022-06-15] MEDS ORDERED: COUGH DROP (SUGAR FREE) LOZ 24 LOZ/1 BOX BUCCAL ONE (10:26)
[2022-06-15 11:14] LABS: Iron 26 mcg/dl (35-150); Total Iron Binding Cap Calc 276 mcg/dl (250-450); Transferrin (FE) Percent Satur 9 % (15-50); Unsaturated Iron Binding Cap 250 mcg/dl (155-355)
[2022-06-15] MEDS ORDERED: TACROLIMUS 0.5 MG CAP PO SCH (21:00)
[2022-06-16] MEDS: PANTOprazole 40 MG in DEXTROSE 5% 100 ML IV SCH ×5 (01:05→21:40)
[2022-06-16] MEDS: CEFEPIME 2,000 MG in SYRINGE 0 ML IV SCH ×3 (02:48→19:50)
[2022-06-16] MEDS: AZITHROMYCIN 500 MG in DEXTROSE 5% 250 ML IV SCH (04:02)
[2022-06-16 07:16] LABS: BUN Creatinine Ratio 24.6 (10-20); Calcium 8.1 mg/dl (8.5-10.1); Creatinine Clr Calc Pharmacy 100.4 ml/min; Est GFR (African American) 125.3 ml/min; Est GFR (Non-African American) 108.1 ml/min; Potassium 3.8 mmol/L (3.5-5.1)
[2022-06-16 07:17] LABS: Basophils # (auto) 0.01 K/uL (0-0.2); Basophils % (auto) 0.2 %; Eosinophils # (auto) 0.09 K/uL (0-0.50); Eosinophils % (auto) 2.2 %; Hematocrit (blood only) 23.5 % (34.1-44.9); Hemoglobin 7.4 g/dl (12.0-16.0); Immature Granulocytes # (auto) 0.06 K/uL (0.00-0.02); Immature Granulocytes % (auto) 1.4 %; Lymphocytes # (auto) 0.55 K/uL (1.2-3.4); Lymphocytes % (auto) 13.3 %; Mean Corpuscular Hgb Conc 31.5 g/dL (32.0-36.0); Mean Corpuscular Volume 82.5 fL (80.0-100.0); Monocytes # (auto) 0.55 K/uL (0.24-0.82); Monocytes % (auto) 13.3 %; Neutrophils # (auto) 2.88 K/uL (1.4-6.5); Neutrophils % (auto) 69.6 %; Ovalocytes 1+; Platelet Count 58 K/uL (130-400); Platelet Estimate Decreased (Normal); RDW Coefficient of Variation 16.9 % (11.5-14.5); RDW Standard Deviation 51.1 fL (36.4-46.3); Red Blood Count 2.85 M/uL (3.93-5.22); Tear Drop Cells 1+; White Blood Count 4.14 K/ul (4.8-10.8)
[2022-06-16] MEDS ORDERED: IRON SUCROSE 300 MG in SODIUM CHLORIDE 0.9% 250 ML IV ONE (08:00)
[2022-06-16] MEDS: TACROLIMUS 0.5 MG/ML PO SCH ×2 (08:35→21:44)
[2022-06-16] MEDS: predniSONE 20 MG TAB PO SCH (08:36)
--- NOTE | 2022-06-16 09:38 | Hospitalist Progress Note ---
Date of Service June 16, 2022 Assessment & Plan (1) Upper GI bleed: Plan: Progressive epigastric burning pain x1 day, h/o grade III esophageal varices and cirrhosis, and with severe thrombocytopenia (see below). No N/V/hematemesis/melena/hematochezia but heme occult positive stool in ED. - no hypotension/tachycardia or cailin bloody/melanotic stools in ED. - PPI gtt --> BID 06/21 - received CTX in ED - continue with Cefepime as stated below - hold on Octreotide for now as no overt signs of active bleeding and patient is hemodynamically stable - IVFs as stated below - consulted GI - appreciate recs -no signs of active bleeding. Hemoglobin down trended, remains >7 Ferritin borderline low, low serum iron, equivocal U IBC. - TSAT <10%, venofer x1 ordered (2) Pneumonia: Plan: H/o COVID-19 positive on 06/07, with worsening cough and SOB over last day. CXR with small right pleural effusion with right basilar consolidation. Lactate/procalcitonin WNL, CRP 0.57, ESR WNL. Not septic. However patient is chronically immunosuppressed, leukopenic, and recently admitted at [facility] - high risk for resistant PNA. - ordered MRSA nares -negative - s/p Ceftriaxone 2g IV in ED - continue with Cefepime/Azithromycin, 7 days complete 06/17 Downtrending hemoglobin, patient continuing to feel poor although satting on room air follow hemoglobin for stability, continue above (3) UTI (urinary tract infection): Plan: UA with 3+ blood/positive nitrite/trace LE but with >30 epithelial cells, and no urinary symptoms. - Cefepime will cover for this -UC with gamma strep (4) Thrombocytopenia: Plan: Plts 54 here, and PT/INR 13.3/1.3, all of which are improved from [facility] hospitalization. Patient has developed a sparse generalized petechial rash which is likely due to chronic thrombocytopenia. No signs of hemodynamic instability/DIC. - trend CBC and PT/INR in AM - continue clinical assessments (5) Anemia: Plan: Hgb 8.1 --> 8.2 here, up from 7.9 at [facility]. However with heme occult positive stool and epigastric pain. - repeat H/H now and trend CBC in AM - transfuse for Hgb <7 as stated above Hemoglobin slowly down trending, discharge held for stability. Receiving IV iron as noted (6) Transaminitis: Plan: AST 80/ALT 62/ALP 209, all significantly improved from [facility]. Transplant rejection process seems to be improving with increased Prednisone dosing. - continue Prednisone 40mg daily x5 more days (total of 10 days), then back down to chronic 10mg daily dose - recs per [facility] Hepatology - continue Tacrolimus, per [facility] Hepatology - tacrolimus level subtherapeutic. VM left for Dr. Garcia about ?increase tac dose to 1.5mg to target goal range 4-6, message left with coordinator Nichelle: [phone], her normal nurse/CM Radha: [phone] is unavailable until next Sunday. Pending callback. - trend LFTs daily (7) Hyperbilirubinemia: Plan: TBili 1.7, slightly increased from [facility] hospitalization. - trended (8) Leukopenia: Plan: WBC 3.15 --> 4.14, stable from hospitalization at [facility]. Due to chronic immunosuppressive regimen. - trended (9) COVID-19: Plan: Diagnosed on 06/07 with positive test here, symptoms since 06/06 - again positive today. Patient has a cough that is most likely due to superimposed pneumonia, as stated above. - maintain airborne precautions (10) H/O liver transplant: Plan: As a 7-month old. With cirrhosis and chronic rejection of transplanted liver as of 2019. - continue Prednisone and Tacrolimus as specified below - f/u with [facility] Hepatology in 3 months as scheduled (11) Liver cirrhosis: Plan: Chronic, due to chronic rejection of transplant. - plan as above (12) Gastroparesis: Plan: Chronic. With minimal nausea currently. - PRN Zofran ordered (13) Pancytopenia: Plan: Immunosuppressive drug therapy induced pancytopenia istory of immunosuppressive therapy of prednisone and tacrolimus. She presents with obvious pancytopenia and with active COVID-19 pneumonia. Risk Factor(s): Chronic prednisone and Prograf therapy Treatment: Daily CBCs with differential, antibiotics (14) Tachycardia: Plan: Patient had an episode of supraventircular tachycardia. improved with 2 doses of 5mg of metoprolol IV CHADSVASC score is 1. Continue metoprolol as needed, high risk for anticoagulation with a [id number] of 1. Do not recommend anticoagulation in this patient Plan DVT Prophylaxis: contraindicated due to upper GI bleed and thrombocytopenia Code Status: full code, although NO intubation outside of cardiac arrest Disposition: PCU Admission and Anticipated Discharge Date Admission Date: June 13, 2022 Subjective +Weakness and LH when bending/standing. +intermittent cough. No fevers/chills/sweats. Review of Systems Review of Systems: All systems reviewed & are unremarkable except as noted in Subjective Physical Exam Physical Exam: General: A&Ox3. NAD. Cooperative. Skin: Scattered petechial rash on extremities, no overlying erythema. HEENT: Atraumatic, normocephalic. Vision and hearing grossly intact Pulm: Diminished with moderate air movement, no wheezes symmetrical chest rise. No increase in work of breathing. No respiratory distress. Cardiac: RRR, -mrg. Radial pulses intact and symmetrical. Abdominal: Nontender, nondistended, soft. BS present. Results & Data Results & Data ([facility]) Vital Signs (Past 12 Hours) Vital Signs Temp Pulse Pulse Resp BP Pulse Ox O2 Del Method 06/16/22 09:17 Room Air 06/16/22 07:51 36.8 C 92 H 20 105/69 97 Room Air 06/16/22 07:05 88 06/16/22 04:12 37.0 C 89 18 112/72 99 Room Air 06/15/22 22:16 91 H 06/15/22 23:09 36.9 C 93 H 20 108/74 97 Room Air PG Care Time/CCT Total # of Minutes Spent Total Time Spent with Patient: Total time spent is greater than 50% in coordination of care (as documented) at patient's floor/unit and/or counseling patient: Coding Level of Care Code 65984 Subseq Hosp Care Lvl 2 Diagnoses Upper GI bleed K92.2 Pneumonia J18.9 Laterality: right Lung location: lower lobe of lung Pneumonia type: due to unspecified organism UTI (urinary tract infection) N39.0 Thrombocytopenia D69.6 Anemia D64.9 Anemia type: unspecified type Transaminitis R74.01 Hyperbilirubinemia E80.6 Leukopenia D72.819 COVID-19 U07.1 H/O liver transplant Z94.4 Liver cirrhosis K74.60 Gastroparesis K31.84 Pancytopenia D61.818 Tachycardia R00.0 (1) Pneumonia Laterality: right Lung location: lower lobe of lung Pneumonia type: due to unspecified organism Qualified Code(s): J18.9 - Pneumonia, unspecified organism (2) Anemia Anemia type: unspecified type Qualified Code(s): D64.9 - Anemia, unspecified
[2022-06-16 10:23] LABS: Albumin Level 3.3 gm/dl (3.4-5.0); Bilirubin Direct 0.5 mg/dl (0-0.2); Bilirubin,Total 1.1 mg/dl (0.2-1.0); Total Protein 6.4 gm/dl (6.0-8.3)
[2022-06-16] MEDS ORDERED: BENZONATATE 100 MG CAPSULE PO PRN (21:58)
[2022-06-17] MEDS: PANTOprazole 40 MG in DEXTROSE 5% 100 ML IV SCH ×5 (02:40→22:30)
[2022-06-17] MEDS: CEFEPIME 2,000 MG in SYRINGE 0 ML IV SCH ×3 (02:48→17:51)
[2022-06-17] MEDS ORDERED: Nursing to Pharmacy Communication SCH (03:00)
[2022-06-17 06:31] LABS: Hematocrit (blood only) 23.9 % (34.1-44.9); Hemoglobin 7.4 g/dl (12.0-16.0); Mean Corpuscular Hemoglobin 25.9 pg (25.0-34.0); Mean Corpuscular Volume 83.6 fL (80.0-100.0); Mean Platelet Volume 11.7 fL (9.4-12.3); Platelet Count 68 K/uL (130-400); RDW Coefficient of Variation 16.7 % (11.5-14.5); RDW Standard Deviation 50.3 fL (36.4-46.3); Red Blood Count 2.86 M/uL (3.93-5.22); White Blood Count 5.32 K/ul (4.8-10.8)
[2022-06-17 07:01] LABS: Albumin Globulin Ratio 1.1 (0.9-2); Albumin Level 3.2 gm/dl (3.4-5.0); Calcium 8.2 mg/dl (8.5-10.1); Creatinine Clr Calc Pharmacy 117.5 ml/min; Est GFR (African American) 131.9 ml/min; Est GFR (Non-African American) 113.8 ml/min; Total Protein 6.2 gm/dl (6.0-8.3)
[2022-06-17 07:03] LABS: INR 1.3 (0.9-1.1); Prothrombin Time 13.6 Seconds (9.0-12.0)
[2022-06-17 07:05] LABS: Basophils # (auto) 0.02 K/uL (0-0.2); Basophils % (auto) 0.4 %; Eosinophils # (auto) 0.07 K/uL (0-0.50); Eosinophils % (auto) 1.3 %; Immature Granulocytes # (auto) 0.27 K/uL (0.00-0.02); Immature Granulocytes % (auto) 5.1 %; Lymphocytes % (auto) 11.3 %; Monocytes # (auto) 0.75 K/uL (0.24-0.82); Monocytes % (auto) 14.1 %; Neutrophils # (auto) 3.61 K/uL (1.4-6.5); Neutrophils % (auto) 67.8 %; Ovalocytes 2+; Tear Drop Cells 2+
[2022-06-17] MEDS: TACROLIMUS 0.5 MG/ML PO SCH ×2 (07:59→21:08)
[2022-06-17] MEDS: predniSONE 20 MG TAB PO SCH (08:00)
[2022-06-17] MEDS: AZITHROMYCIN 250 MG TAB PO SCH (08:00)
[2022-06-17] MEDS ORDERED: IRON SUCROSE 300 MG in SODIUM CHLORIDE 0.9% 250 ML IV ONE (08:15)
--- NOTE | 2022-06-17 12:01 | Hospitalist Progress Note ---
Date of Service June 17, 2022 Assessment & Plan (1) Upper GI bleed: Plan: Progressive epigastric burning pain x1 day, h/o grade III esophageal varices and cirrhosis, and with severe thrombocytopenia (see below). - No N/V/hematemesis/melena/hematochezia but heme occult positive stool in ED. - no hypotension/tachycardia or cailin bloody/melanotic stools in ED. - PPI gtt --> BID 06/21. Convert to PO on d/c for 6 weeks if hgb stable - received CTX in ED - continue with Cefepime as stated below - hold on Octreotide for now as no overt signs of active bleeding and patient is hemodynamically stable - IVFs as stated below - consulted GI - appreciate recs. No indication for EGD at this time. Hemoglobin equivocal today, remains above transfusion threshold Ferritin borderline low, low serum iron, equivocal U IBC. -Second unit of Venofer being transfused this morning Patient otherwise well, on room air, and antibiotics complete today. If hemoglobin stable/uptrending anticipate progression to discharge with outpatient follow-up to GI. (2) Pneumonia: Plan: H/o COVID-19 positive on 06/07, with worsening cough and SOB over last day prior to admission. CXR with small right pleural effusion with right basilar consolidation. - Lactate/procalcitonin WNL, CRP 0.57, ESR WNL. Not septic. - chronically immunosuppressed, leukopenic, and recently admitted at [facility] - high risk for resistant PNA. - ordered MRSA nares -negative -Cefepime/Azithromycin, 5 days complete 06/17 At pulmonary baseline with some residual cough, following hemoglobin progression above (3) UTI (urinary tract infection): Plan: UA with 3+ blood/positive nitrite/trace LE but with >30 epithelial cells, and no urinary symptoms. - Cefepime will cover for this -UC with gamma strep Completed course of antibiotics 06/17 (4) Thrombocytopenia: Plan: Plts 54 here, and PT/INR 13.3/1.3, all of which are improved from [facility] hospitalization. Patient has developed a sparse generalized petechial rash which is likely due to chronic thrombocytopenia. No signs of hemodynamic instability/DIC. -06/17 plt 68, INR 1.3 (5) Anemia: Plan: Hgb 8.1 --> 8.2 here, up from 7.9 at [facility]. However with heme occult positive stool and epigastric pain. - repeat H/H now and trend CBC in AM - transfuse for Hgb <7 as stated above Charge held for hemoglobin stability, no continued drop in equivocal at 7.4 this morning, second unit of Venofer pending, no clinical bleeding. (6) Transaminitis: Plan: - continue Prednisone 40mg daily x5 until 06/17, then back down to chronic 10mg daily dose - recs per [facility] Hepatology. Decreased to 10mg dose on 06/18. - continue Tacrolimus, per [facility] Hepatology -Reviewed with [facility] hepatology, do recommend target level of 4-6. Agree with increased to 1.5 mg twice daily tacrolimus dosing (7) Hyperbilirubinemia: Plan: TBili 1.7, slightly increased from [facility] hospitalization. - trended (8) Leukopenia: Plan: - Due to chronic immunosuppressive regimen. - trended (9) COVID-19: Plan: Diagnosed on 06/07 with positive test here, symptoms since 06/06 - again positive on admit - Patient has a cough that is most likely due to superimposed pneumonia, treated as noted - maintain airborne precautions (10) H/O liver transplant: Plan: As a 7-month old. With cirrhosis and chronic rejection of transplanted liver as of 2019. - continue Prednisone and Tacrolimus as specified below. Tac increased to 1.5mg for goal level 4-6 - f/u with [facility] Hepatology in 3 months as scheduled (11) Liver cirrhosis: Plan: Chronic, due to chronic rejection of transplant. - plan as above (12) Gastroparesis: Plan: Chronic. With minimal nausea currently. - PRN Zofran ordered (13) Pancytopenia: Plan: Immunosuppressive drug therapy induced pancytopenia istory of immunosuppressive therapy of prednisone and tacrolimus. She presents with obvious pancytopenia and with active COVID-19 pneumonia. Risk Factor(s): Chronic prednisone and Prograf therapy Treatment: Daily CBCs with differential, antibiotics (14) Tachycardia: Plan: Patient had an episode of supraventircular tachycardia. improved with 2 doses of 5mg of metoprolol IV CHADSVASC score is 1. Continue metoprolol as needed, high risk for anticoagulation with a [id number] of 1. Do not recommend anticoagulation in this patient Plan DVT Prophylaxis: contraindicated due to upper GI bleed and thrombocytopenia Code Status: full code, although NO intubation outside of cardiac arrest Disposition: PCU Admission and Anticipated Discharge Date Admission Date: June 13, 2022 Subjective Seen at bedside. No bleeding. No lightheadedness or dizziness. Walking around room back from bathroom at time of assessment, no acute concerns and no shortness of breath. No chest pain or chest pressure. 2 days with intermittent nonproductive cough. No fevers. Completed, pending second Venofer transfusion Review of Systems Review of Systems: All systems reviewed & are unremarkable except as noted in Subjective Physical Exam Physical Exam: General: A&Ox3. NAD. Cooperative. Walking around room back from bathroom at time of bedside assessment, no dyspnea. Skin: Scattered petechial rash on extremities, no overlying erythema. HEENT: Atraumatic, normocephalic. Vision and hearing grossly intact Pulm: No wheezes/rales appreciated, moderate air movement, SPO2 98% on room air. No increase in work of breathing. No respiratory distress. Cardiac: RRR, -mrg. Radial pulses intact and symmetrical. Abdominal: Nontender, nondistended, soft. BS present. Results & Data Results & Data ([facility]) Vital Signs (Past 12 Hours) Vital Signs Temp Pulse Pulse Resp BP Pulse Ox O2 Del Method 06/17/22 10:37 37.1 C 90 19 98/59 L 98 Room Air 06/17/22 09:07 86 06/17/22 08:43 Room Air 06/17/22 07:51 36.8 C 78 16 100/63 98 Room Air 06/17/22 03:00 36.7 C 89 18 99/56 L 97 Room Air PG Care Time/CCT Total # of Minutes Spent Total Time Spent with Patient: Total time spent is greater than 50% in coordination of care (as documented) at patient's floor/unit and/or counseling patient: Coding Level of Care Code 31507 Subseq Hosp Care Lvl 2 Diagnoses Upper GI bleed K92.2 Pneumonia J18.9 Laterality: right Lung location: lower lobe of lung Pneumonia type: due to unspecified organism UTI (urinary tract infection) N39.0 Thrombocytopenia D69.6 Anemia D64.9 Anemia type: unspecified type Transaminitis R74.01 Hyperbilirubinemia E80.6 Leukopenia D72.819 COVID-19 U07.1 H/O liver transplant Z94.4 Liver cirrhosis K74.60 Gastroparesis K31.84 Pancytopenia D61.818 Tachycardia R00.0 (1) Pneumonia Laterality: right Lung location: lower lobe of lung Pneumonia type: due to unspecified organism Qualified Code(s): J18.9 - Pneumonia, unspecified organism (2) Anemia Anemia type: unspecified type Qualified Code(s): D64.9 - Anemia, unspecified
[2022-06-17] MEDS: ONDANSETRON INJ 2 MG/ML 2 ML VIAL IV PRN ×2 (15:56→22:30)
[2022-06-18] MEDS: PANTOprazole 40 MG in DEXTROSE 5% 100 ML IV SCH ×2 (03:35→08:10)
[2022-06-18] MEDS: CEFEPIME 2,000 MG in SYRINGE 0 ML IV SCH ×2 (03:56→10:53)
[2022-06-18 06:54] LABS: Hemoglobin 7.5 g/dl (12.0-16.0); Mean Corpuscular Hemoglobin 25.6 pg (25.0-34.0); Mean Corpuscular Hgb Conc 31.3 g/dL (32.0-36.0); Mean Corpuscular Volume 81.9 fL (80.0-100.0); Nucleated RBC # (auto) 0.03 K/uL (0-0); Nucleated RBC % (auto) 0.4 %; RDW Coefficient of Variation 17.1 % (11.5-14.5); RDW Standard Deviation 51.4 fL (36.4-46.3); Red Blood Count 2.93 M/uL (3.93-5.22); White Blood Count 7.09 K/ul (4.8-10.8)
[2022-06-18 07:22] LABS: Albumin Globulin Ratio 1.1 (0.9-2); Albumin Level 3.3 gm/dl (3.4-5.0); BUN Creatinine Ratio 21.7 (10-20); Bilirubin,Total 1.1 mg/dl (0.2-1.0); Calcium 8.4 mg/dl (8.5-10.1); Creatinine Clr Calc Pharmacy 115.5 ml/min; Est GFR (African American) 131.2 ml/min; Est GFR (Non-African American) 113.2 ml/min; Globulin 3.1 gm/dl (2.5-4.0); Potassium 4.1 mmol/L (3.5-5.1); Total Protein 6.4 gm/dl (6.0-8.3)
[2022-06-18 07:37] LABS: Basophils # (auto) 0.01 K/uL (0-0.2); Basophils % (auto) 0.1 %; Eosinophils % (auto) 1.4 %; Immature Granulocytes # (auto) 0.52 K/uL (0.00-0.02); Immature Granulocytes % (auto) 7.3 %; Lymphocytes # (auto) 0.62 K/uL (1.2-3.4); Lymphocytes % (auto) 8.7 %; Mean Platelet Volume 12.4 fL (9.4-12.3); Monocytes # (auto) 0.85 K/uL (0.24-0.82); Neutrophils # (auto) 4.99 K/uL (1.4-6.5); Neutrophils % (auto) 70.5 %; Ovalocytes 1+; Platelet Count 71 K/uL (130-400); Platelet Estimate Decreased (Normal); Tear Drop Cells 1+
[2022-06-18] MEDS: TACROLIMUS 0.5 MG/ML PO SCH (08:10)
[2022-06-18] MEDS: AZITHROMYCIN 250 MG TAB PO SCH (08:11)
[2022-06-18] MEDS ORDERED: IRON SUCROSE 300 MG in SODIUM CHLORIDE 0.9% 250 ML IV ONE (09:30)
--- NOTE | 2022-06-18 12:15 | Discharge Summary ---
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 Was found to be pancytopenic as well as with mildly elevated INR and significantly elevated LFTs (AST 439, ALT 199, 2:1 ratio) - all labs worsened from 03/2022. Was also COVID-19 positive. Was mildly tachycardic but otherwise afebrile and hemodynamically stable. Patient was thus transferred to [facility] on 06/08, and was admitted there from 06/08 - 06/10 for presumed liver transplant rejection. Tacrolimus level on 06/10 was 2.9. Pancytopenia improved during hospitalization - on discharge Hgb 7.9/WBC 3.12/plts 45. Transaminitis improved as well - on day of discharge AST 136/ALT 84/TBili 1.3, and coags improved as well - PT 17.7/INR 1.5 on discharge. In regards to COVID-19, patient was febrile with cough during the hospitalization but not septic - she was started on Prednisone 40mg PO daily and was instructed to continue this for total 10 days (today is day 4). Of note patient was on chronic immunosuppressive regimen until age 13. Then had liver biopsy in 2019 which showed advanced cirrhosis with concern for chronic rejection or antibody-mediated rejection. Patient was re-started on Prednisone and Tacrolimus at that time. Since discharge from [facility] on 06/10, patient reports progressively worsening cough and shortness of breath that is worst when lying down. She also reports wors ening burning epigastric pain although denies increase in chronic nausea, denies vomiting/hematemesis, denies melena/hematochezia. Reports that she has not had a BM for several days. Also patient reports progressive non-blanching petechial rash on arms/legs/chest over last 24 hours. Denies bleeding lesions or cailin bruising. Denies lightheadedness/dizziness. Denies dysuria, hematuria or increased urinary frequency/urgency. Patient has continued to take increased dose of Prednisone 40mg daily as prescribed (today is day 5) as well as Tacrolimus. In the ED the patient was afebrile and stable on room air. Labs significant for WBC 3.15 (stable), plts 54 (improving) and Hgb 8.1 --> 8.2 several hours later (improving from [facility] discharge). PT 13.3/INR 1.3 (improving). TBili 1.7 (slightly elevated from discharge). AST 80/ALT 62/ALP 209 (all significantly improved). Kidney function intact although BUN:Cr ratio elevated. CRP 0.57/ESR 3/Procalcitonin 0.16. CXR showing small right pleural effusion with right basilar consolidation - new in comparison to 06/07. UA with 3+ blood/positive nitrite/trace LE but with >30 epithelial cells. Patient was given NSS 500cc bolus and CTX 2g IV in ED. Blood/urine cxs collected before initiation of abx. Principal Diagnosis Acute on chronic anemia, suspected GI bleed Pneumonia Discharge Exam General: A&Ox3. NAD. Cooperative. Independetly ambulatory in room Skin: Scattered petechial rash on extremities, no overlying erythema. HEENT: Atraumatic, normocephalic. Vision and hearing grossly intact Pulm: No wheezes/rales appreciated, moderate air movement, SPO2 98% on room air. No increase in work of breathing. No respiratory distress. Cardiac: RRR, -mrg. Radial pulses intact and symmetrical. Abdominal: Nontender, nondistended, soft. BS present. Discharge Data Allergies Allergy/AdvReac Type Severity Reaction Status Date / Time dextromethorphan AdvReac Dizziness Verified 06/12/22 23:41 [From Mucinex Cough] guaifenesin AdvReac Dizziness Verified 06/12/22 23:41 [From Mucinex Cough] sumatriptan [From Imitrex] AdvReac Dizziness Unverified 06/12/22 23:37 & Lethargy Consultations 06/12/22 21:50 ED Decision to Admit Stat 06/13/22 02:49 Consult Gastroenterology Routine 06/14/22 10:00 Consult Cardiology Routine Ordered Studies 06/12/22 22:58 CT chest diagnostic wo con Stat Hospital Course (1) Upper GI bleed: Aspen is a 42-year-old female with a history of childhood liver transplant, recent COVID, thrombocytopenia who presented with epigastric burning, worsening shortness of breath and cough, and worsened anemia. She was treated for pneum onia with right basilar consolidation on x-ray, and for suspected upper GI bleeding. She did not have any overt bleeding, however did have a downtrending hemoglobin with Hemoccult positive stool. Octreotide was not recommended, EGD was felt to be high risk and not recommended on GI consultation. Iron study showed a profoundly low transferrin saturation of less than 10%. She received Venofer transfusion with stabilization of her hemoglobin, and gradually uptrending at time of discharge. Additional monitoring of hemoglobin versus close outpatient follow-up was offered to patient, she preferred to be discharged home with CBC recheck within the week. Additional Venofer dose was given prior to discharge. She did complete 6 days of antibiotics for CAP. To do as outpatient: 1. Repeat CBC within 1 week, patient has a primary care appointment in 48 hours and will have blood drawn at that appointment 2. Continue oral iron every other day 3. No additional antibiotics prescribed, completed a course of cefepime and azithromycin during admission 4. Continue to follow pancytopenia as outpatient, follow-up to hematology 5. Tacrolimus levels were low, this was discussed with hepatology during admission. Target Tac levels 46, these were 3 during admission and tacrolimus was increased to 1.5 mg twice daily. Should have repeat tacrolimus levels as an outpatient with close follow-up 6. Outpatient GI follow-up for Hemoccult positive stool. EGD was not recommended during time of admission due to high risk of scope, no overt clinical bleeding, stabilization and gradual uptrend of Hgb. Continue PPI twice daily Progressive epigastric burning pain x1 day, h/o grade III esophageal varices and cirrhosis, and with severe thrombocytopenia (see below). - No N/V/hematemesis/melena/hematochezia but heme occult positive stool in ED. - no hypotension/tachycardia or cailin bloody/melanotic stools in ED. - PPI gtt --> BID 06/21. Convert to PO on d/c for 6 weeks if hgb stable - received CTX in ED - continue with Cefepime as stated below - hold on Octreotide for now as no overt signs of active bleeding and patient is hemodynamically stable - IVFs as stated below - consulted GI - appreciate recs. No indication for EGD at this time. Hemoglobin equivocal today, remains above transfusion threshold Ferritin borderline low, low serum iron, equivocal U IBC. Concern saturation less than 10 -Recieved venofer during admission Patient otherwise well, on room air, and antibiotics complete. Feeling well near her baseline, comfortable discharge with close follow-up to outpatient providers (2) Pneumonia: H/o COVID-19 positive on 06/07, with worsening cough and SOB over last day prior to admission. CXR with small right pleural effusion with right basilar consolidation. - Lactate/procalcitonin WNL, CRP 0.57, ESR WNL. Not septic. - chronically immunosuppressed, leukopenic, and recently admitted at [facility] - high risk for resistant PNA. - ordered MRSA nares -negative -Cefepime/Azithromycin, 6 days complete 06/18 At pulmonary baseline with some residual cough, following hemoglobin progre ssion above (3) UTI (urinary tract infection): UA with 3+ blood/positive nitrite/trace LE but with >30 epithelial cells, and no urinary symptoms. - Cefepime will cover for this -UC with gamma strep Completed course of antibiotics 06/17 (4) Thrombocytopenia: Plts 54 here, and PT/INR 13.3/1.3, all of which are improved from [facility] hospitalization. Patient has developed a sparse generalized petechial rash which is likely due to chronic thrombocytopenia. No signs of hemodynamic instability/DIC. Lites improving at time of discharge, 70 1K (5) Anemia: Hgb 8.1 --> 8.2 here, up from 7.9 at [facility]. However with heme occult positive stool and epigastric pain. - repeat H/H now and trend CBC in AM - transfuse for Hgb <7 as stated above Hemoglobin gradually uptrending at time of discharge (6) Transaminitis: - continue Prednisone 40mg daily x5 until 06/17, then back down to chronic 10mg daily dose - recs per [facility] Hepatology. Decreased to 10mg dose on 06/18. - continue Tacrolimus, per [facility] Hepatology -Reviewed with [facility] hepatology, do recommend target level of 4-6. Agree with increased to 1.5 mg twice daily tacrolimus dosing (7) Hyperbilirubinemia: TBili 1.7, slightly increased from [facility] hospitalization. - trended (8) Leukopenia: - Due to chronic immunosuppressive regimen. - trended (9) COVID-19: Diagnosed on 06/07 with positive test here, symptoms since 06/06 - again positive on admit - Patient has a cough that is most likely due to superimposed pneumonia, treated as noted - maintain airborne precautions (10) H/O liver transplant: As a 7-month old. With cirrhosis and chronic rejection of transplanted liver as of 2019. - continue Prednisone and Tacrolimus as specified below. Tac increased to 1.5mg for goal level 4-6 - f/u with [facility] Hepatology in 3 months as scheduled (11) Liver cirrhosis: Chronic, due to chronic rejection of transplant. - plan as above (12) Gastroparesis: Chronic. With minimal nausea currently. - PRN Zofran ordered (13) Pancytopenia: Immunosuppressive drug therapy induced pancytopenia istory of immunosuppressive therapy of prednisone and tacrolimus. She presents with obvious pancytopenia and with active COVID-19 pneumonia. Risk Factor(s): Chronic prednisone and Prograf therapy Treatment: Daily CBCs with differential, antibiotics (14) Tachycardia: Patient had an episode of supraventircular tachycardia. improved with 2 doses of 5mg of metoprolol IV CHADSVASC score is 1. Continue metoprolol as needed, high risk for anticoagulation with a [id number] of 1. Do not recommend anticoagulation in this patient Plan DVT Prophylaxis: contraindicated due to upper GI bleed and thrombocytopenia Code Status: full code, although NO intubation outside of cardiac arrest Disposition: PCU Total Time Total Time Spent Total Time Spent (In Minutes): Time spend day of discharge 40 minutes including direct patient care, documentation, review of labs and images, and coordination of care. Discharge Plan Discharge Items Patient Disposition: Home - Self-Care Reason For Visit: PNEUMONIA, UPPER GI BLEED, UTI Discharge Diagnosis: Pneumonia Upper GI bleed Acute on chronic anemia Activity: Per Instructions section Non-emergency contact: Primary Care Provider and Slip Tender Call non-emergency contact if: you have any medication questions and your symptoms worsen Follow-up/Referrals: Ac Desai DO [Physician] - Donny Mazariegos MD [Primary Care Provider] - Diet: Regular Addtl Attending Provider Instructions: You are seen in the hospital for pneumonia with a recent history of COVID, epigastric pain with Hemoccult positive stool and concern for GI bleeding. You were profoundly iron deficient with a transferrin saturation of less than 10%. You are treated with antibiotics and clinically improved, and your breathing was normal at time of discharge. You received a total of 600 mg of IV iron over 2 days, and your hemoglobin level stabilized and began to uptrend. You did not show clinical signs of bleeding. Your tacrolimus levels were low, this was discussed with your hepatology team. Tacrolimus was increased to 1.5 mg twice daily. Please have repeat tacrolimus levels performed at outpatient follow-up. Your prednisone was temporarily increased for 5 days though 06/18, and then you were decreased to your 10 mg daily dose at the recommendation of your hepatology team. You have been prescribed antiacid medications. Please take Protonix 40 mg by mouth twice daily. Please do not take oral NSAIDs at this time as they can contribute to gastric ulcers/bleeding. Your blood levels were uptrending, but still low at time of discharge. Your overall risk of bleeding was low, and you are clinically improving on iron. The risk/benefits of staying in the hospital versus continued observation of blood counts were discussed. You are comfortable with discharged home with close monitoring, and return precautions. please continue to take ferrous sulfate 325 mg by mouth every other day (there is no benefit to taking this daily rather than every other day), and have a repeat blood count performed within 1 week. If you develop any new or worsening symptoms including fever, chills, sweats, chest pain, chest pressure, difficulty breathing, uncontrolled nausea/vomiting, rash, wheezing, passing out or nearly passing out, bleeding, black/bloody bowel movements, or other new or concerning symptoms please call your primary care physician, or call 911 for re-evaluation in the emergency department if you are very concerned. Pending Studies at Discharge: No Stand-Alone Forms: [facility], Smoking Cessation Medications and DC Order Prescriptions: New ferrous sulfate [Iron (ferrous sulfate)] 325 mg (65 mg iron) tablet 325 mg PO Q OTHER DAY Qty: 30 0RF Continued ondansetron HCl 4 mg tablet 4 mg PO Q8H PRN (Reason: Nausea And Vomiting) prednisone 10 mg tablet 10 mg PO HS carvedilol 6.25 mg Tablet 6.25 mg PO BID metoclopramide HCl 5 mg Tablet 5 mg PO BID diclofenac sodium [Voltaren] 1 % Gel 2 g TOPICAL Q4H PRN (Reason: Pain) tacrolimus 5 mg capsule See Rx Instructions .ROUTE .COMPLEX Qty: 1 0RF Rx Instructions: uses comp oral formulation. 1.5mg BID Discharge Orders: Discharge Order (Routine); Ordered 06/18/22 Ordered By: Elijah Vernon Admission Data Admit Date/Time: 06/13/22 00:49 Attending Provider: Elijah Vernon Admit Provider: Miguel Angel Gomez Primary Care Provider: Donny Mazariegos V. Other Providers: Albin Ramirez ; Ac Desai ; Mikey Avendano Coding Level of Care Code D/C DAY MANAGEMENT >30 MINS Diagnoses Upper GI bleed K92.2 Pneumonia J18.9 Laterality: right Lung location: lower lobe of lung Pneumonia type: due to unspecified organism UTI (urinary tract infection) N39.0 Thrombocytopenia D69.6 Anemia D64.9 Anemia type: unspecified type Transaminitis R74.01 Hyperbilirubinemia E80.6 Leukopenia D72.819 COVID-19 U07.1 H/O liver transplant Z94.4 Liver cirrhosis K74.60 Gastroparesis K31.84 Pancytopenia D61.818 Tachycardia R00.0
[2022-06-19] MEDS ORDERED: predniSONE 10 MG TABLET PO SCH (09:00)
== END 2022-06-18 12:56 | disposition home or self-care (01) | DRG 177 ==
LOC: ED 16:14 → 2S 06-13 00:49 → SUATTDRO 06-13 00:49 → 2S 06-13 02:09 → 2E 06-13 19:05